=== PATIENT | female | born 1960 | race African-American/Black ===

== ENCOUNTER 2020-11-08 11:26 | Emergency (ER) | payer OTHER, SELFPAY ==
[2020-11-08 13:41] VITALS: BP 152/67; PULSE 95; RESP 18; TEMP 36.8; O2SAT 100
--- NOTE | 2020-11-08 13:46 | ECG_ITS ---
Measurements Intervals [place] Rate: 93 P: 49 MT: 169 QRS: 52 QRSD: 87 T: -18 QT: 347 QTc: 433 Interpretive Statements SINUS RHYTHM FREQUENT VENTRICULAR PREMATURE COMPLEXES NONSPECIFIC ST & T-WAVE ABNORMALITY- ANTEROLAT/INF LEADS BASELINE ARTIFACT- I, II, III, AVR, AVL, AVF, V5 ABNORMAL ECG Electronically Signed On 11-08-2020 13:56:07 CDT by Taiwo Serrato D.O.
== END 2020-11-08 13:41 | disposition left against medical advice (07) ==
PROVIDERS: Emergency Provider Emergency Medicine; PCP Family Medicine
DX: R03.0 Elevated blood-pressure reading, without diagnosis of hypertension (principal)
CPT/HCPCS: 93005; 99199

== ENCOUNTER 2021-01-19 09:23 | Outpatient (CLI) | payer OTHER, SELFPAY ==
--- NOTE | ~2021-01-19 | MM_ITS ---
EXAMINATION: MM screening ryan BI w argelia HISTORY: Screening TECHNIQUE: Craniocaudal and mediolateral oblique 3-D tomosynthesis images were obtained and synthetic 2-D images were generated. CAD analysis was submitted and interpreted. COMPARISON: No prior mammogram is available for comparison at this institution. BREAST PARENCHYMAL COMPOSITION: The breasts are heterogenously dense, which may obscure small masses. FINDINGS: There are bilateral breast asymmetries centrally which are obscured by dense fibroglandular tissue. There are no suspicious calcifications. IMPRESSION: 1. Bilateral breast asymmetries. 2. Additional mammographic views and possible breast ultrasound are recommended. BI-RADS Category 0: Incomplete: Needs additional imaging evaluation. Reviewed, dictated and finalized at location A. LER MANAGER IMPRESSION: 1. Bilateral breast asymmetries. 2. Additional mammographic views and possible breast ultrasound are recommended . BI-RADS Category 0: Incomplete: Needs additional imaging evaluation.
== END 2021-01-19 09:24 | disposition home or self-care (01) ==
PROVIDERS: PCP Family Medicine
DX: Z12.31 Encounter for screening mammogram for malignant neoplasm of breast (principal); R92.8 Other abnormal and inconclusive findings on diagnostic imaging of breast
CPT/HCPCS: 77063; 77067

== ENCOUNTER 2021-02-23 11:42 | Outpatient (CLI) | payer OTHER, SELFPAY ==
--- NOTE | ~2021-02-23 | MMUS_ITS ---
EXAMINATION: MM diagnostic ryan BI w argelia, US breast BI complete HISTORY: Follow-up breast asymmetries TECHNIQUE: Additional 3-D tomosynthesis images of the breasts were performed and synthetic 2-D images were generated. CAD analysis was submitted and interpreted. High resolution complete bilateral breas t ultrasound was performed. COMPARISON: 01/19/2021 BREAST PARENCHYMAL COMPOSITION: The breasts are heterogenously dense, which may obscure small masses FINDINGS: MAMMOGRAPHIC FINDINGS: There are no suspicious masses, calcifications or architectural distortion in either breast to sugges t malignancy. ULTRASOUND: Complete bilateral US of all 4 quadrants of the breasts and retroareolar region was reviewed. Normal heterogeneous echotexture throughout both breasts without discrete mass. IMPRESSION: 1. No evidence for malignancy in either breast. 2. Routine yearly screening mammogram and regular clinical breast examination are recommended. BI-RADS Category 1: Negative Reviewed, dictated and finalized at location A. ACTIVITIES COACH IMPRESSION: 1. No evidence for malignancy in either breast. 2. Routine yearly screening mammogram and regular clinical breast examination a re recommended. BI-RADS Category 1: Negative
== END 2021-02-23 11:43 | disposition home or self-care (01) ==
LOC: ANHIMG 11:45
PROVIDERS: PCP Family Medicine
DX: R92.8 Other abnormal and inconclusive findings on diagnostic imaging of breast (principal)
CPT/HCPCS: 76641; 77062; 77066; G0279

== ENCOUNTER 2021-10-13 13:03 | Outpatient (CLI) | payer OTHER, SELFPAY ==
[2021-10-15 13:02] LABS: PCP NEGATIVE ng/mL (<25)
[2021-10-27 13:41] LABS: Amphetamines NEGATIVE; Barbiturates NEGATIVE; Marijuana Metabolites NEGATIVE
[2021-10-27 13:42] LABS: Benzodiazepines NEGATIVE; Cocaine Metabolites NEGATIVE
== END 2021-10-13 13:04 | disposition home or self-care (01) ==
PROVIDERS: PCP Family Medicine; Visit Provider Family Medicine
DX: Z79.899 Other long term (current) drug therapy (principal)
CPT/HCPCS: 80307

== ENCOUNTER 2022-05-10 09:05 | Outpatient (CLI) | payer OTHER, SELFPAY ==
--- NOTE | 2022-05-10 11:48 | WPDPFTINT ---
PFT Procedure Performed PFT Procedure Performed Spirometry with Pre/Post Bronchodilator Plethysmography (Lung Vol) Diffusing Cap (DLCO) PFT Interpretation DOS: 05/10/2022 REQUESTING: Kylie Newton APRN REASON FOR TESTING: Dyspnea on exertion PULMONARY FUNCTION TESTS The results are not reproducible. Spirometry: FEV1 pre bronchodilators 1.94 L, 102% predicted, normal. Pre bronchodilator FVC is 2.19 L, 91%, normal. The FEV1/ FVC ratio was 89% normal. No airflow obstruction. After bronchodilator there is a 6% drop in FEV1 and 8% drop in the FVC. Lung volumes: Total lung capacity is 4.16 L, 100% predicted, normal. Residual volume is 1.94 L, 107% predicted, normal. RV / TLC 47%, within the normal range. Airway resistance is 3.17, 164%, greater than the normal. Diffusion: DLCO is 14.9, 73%, normal. DLCO/ VA is 5.11, 114%, normal. Flow volume loop: The flow volume loop is not reproducible. IMPRESSION: This study shows normal spirometry without response to bronchodilator, normal lung volumes and normal diffusion. Although the results were not reproducible as the patient could not exhale for at least 6 seconds, the normal results are reassuring. Clinical correlation is recommended. Dunia So MD
--- NOTE | 2022-05-10 12:04 | WPDSIXMINUTE ---
Six Minute Walk Procedure Procedure Performed Pulmonary Stress Test (6 min walk) Six Minute Walk Six Minute Walk: DOS: 05/10/2022 REQUESTING: Kylie Newton APRN REASON: dyspnea on exertion SIX MINUTE WALK This test was conducted according to ATS standards. The patient was breathing room air during testing. The baseline saturation was 96% and the pulse was 99. The patient walked without stopping, completed 518 m, 1700 ft. The lowest saturation was 92%. Highest pulse or was 127 beats per minute. At the end of recovery saturation was normal 97% pulse was 114. IMPRESSION: This is a normal walk study. The patient does not require supplemental oxygen with exertion. Distance walked is normal.
--- NOTE | 2022-05-14 11:45 | WPDSIXMINUTE ---
Six Minute Walk Procedure Procedure Performed Pulmonary Stress Test (6 min walk) Six Minute Walk Six Minute Walk: This is a 6 minute walk test. The test was performed and interpreted in accordance with the 2014 ERS/ATS task force guidelines. Findings: The patient's resting room air oxygen saturation measured by pulse oximetry was 96% and heart rate was 99 bpm. Patient ambulated for 518 meters and oxygen saturation remained 93 to 97%. Heart rate at the end of the study was 120 bpm. The patient did not qualify for supplemental oxygen at rest or with ambulation. There are no prior studies for comparison.
--- NOTE | 2022-05-14 11:46 | WPDPFTINT ---
PFT Procedure Performed PFT Procedure Performed Spirometry with Pre/Post Bronchodilator Plethysmography (Lung Vol) Diffusing Cap (DLCO) Flow Vol Loop PFT Interpretation This is a pulmonary function test with pre and post-bronchodilator spirometry, plethysmography and diffusing capacity. The test was performed and results interpreted in accordance with the 2019 and 2005 ATS/ERS Task Force guidelines respectively using the Global Lung Function Initiative-2012 reference equations. Patient demonstrated good effort and cooperation. Reproducibility criteria were met. The quality of the pre bronchodilator spirometry maneuver was Grade B and post bronchodilator spirometry maneuver was Grade A. Findings: Spirometry: The contour the inspiratory and expiratory flow tracing are normal. The pre bronchodilator FVC is 2.19 L, 91% predicted. The pre bronchodilator FEV1 is 1.94 L, 102% predicted. The pre bronchodilator FEV1: FVC ratio is 89%. The post bronchodilator FVC is 2.00 L, representing an 8% decrease. The post bronchodilator FEV1 is 1.83 L, representing a 6% decrease. The post bronchodilator FEV1: FVC ratio is 91%. Plethysmography: The total lung capacity is 4.16 L, 100% predicted. The functional residual capacity is 2.43 L, 97% predicted. The residual volume is 1.94 L, 107% predicted. Diffusing capacity: The diffusing capacity unadjusted for hemoglobin and carboxyhemoglobin is 14.9, 73% predicted. The diffusing capacity adjusted for alveolar volume is 5.11, 114% predicted. Impression: The spirometry is normal without evidence of an obstructive abnormality. There is no significant improvement after inhaling a single dose of albuterol. The lung volumes are normal. The diffusing capacity is normal. There are no prior studies for comparison
== END 2022-05-10 09:06 | disposition home or self-care (01) ==
PROVIDERS: PCP Family Medicine; Visit Provider Nurse Practitioner Gerontology
DX: R06.09 Other forms of dyspnea (principal)
CPT/HCPCS: 94060; 94618; 94726; 94729

== ENCOUNTER 2023-02-27 15:03 | Outpatient (CLI) | payer MEDICARE, MEDICAID, SELFPAY ==
--- NOTE | ~2023-02-27 | MM_ITS ---
EXAMINATION: MM screening ryan BI w argelia HISTORY: Screening TECHNIQUE: Craniocaudal and mediolateral oblique 3-D tomosynthesis images were obtained and synthetic 2-D images were generated. CAD analysis was submitted and interpreted. COMPARISON: . Comparison to multiple prior studies sequentially, with oldest reviewed study dated . BREAST PARENCHYMAL COMPOSITION: The breasts are heterogeneously dense, which may obscure small masses FINDINGS: There are nodular asymmetries centrally in both breasts which are more prominent than on pr ior study. There are no suspicious calcifications or architectural distortion. IMPRESSION: 1. Increased prominence of nodular asymmetries bilaterally. 2. Additional mammographic views and possible breast ultrasound are recommended. BI-RADS Category 0: Incomplete: Needs additional imaging evaluation. Reviewed, dictated and finalized at location A. ING HOME AIDE IMPRESSION: 1. Increased prominence of nodular asymmetries bilaterally. 2. Additional mammographic views and possible breast ultrasound are recommended . BI-RADS Category 0: Incomplete: Needs additional imaging evaluation.
== END 2023-02-27 15:04 | disposition home or self-care (01) ==
PROVIDERS: PCP Family Medicine; Visit Provider Obstetrics & Gynecology
DX: Z12.31 Encounter for screening mammogram for malignant neoplasm of breast (principal); R92.8 Other abnormal and inconclusive findings on diagnostic imaging of breast
CPT/HCPCS: 77063; 77067

== ENCOUNTER 2023-04-11 12:24 | Outpatient (CLI) | payer MEDICARE, MEDICAID, SELFPAY ==
--- NOTE | ~2023-04-11 | MMUS_ITS ---
EXAMINATION: MM diagnostic ryan BI w argelia, US breast BI complete HISTORY: Follow-up bilateral breast asymmetries TECHNIQUE: Additional 3-D tomosynthesis images of the breasts were performed and synthetic 2-D images were generated. CAD analysis was submitted and interpreted. High resolution bilateral complete breas t ultrasound was performed. COMPARISON: Comparison to multiple prior studies sequentially, with oldest reviewed study dated 12/13. BREAST PARENCHYMAL COMPOSITION: Dense: The breasts are extremely dense, which lowers the sensitivity of mammography. FINDINGS: MAMMOGRAPHIC FINDINGS: The asymmetries are not apparent with spot compression and mediolateral views, compatible with superi mposed fibroglandular tissue. No suspicious masses, calcifications or architectural distortion in eit her breast to suggest malignancy. ULTRASOUND: Complete bilateral US of all 4 quadrants of the breasts and retroareolar region was reviewed. Normal heterogeneous echotexture without focal solid or cystic mass. IMPRESSION: 1. No evidence for malignancy in either breast. 2. Routine yearly screening mammogram and regular clinical breast examination are recommended. BI-RADS Category 1: Negative Reviewed, dictated and finalized at location A. OR TECHNICAL BUSINESS ANALYST IMPRESSION: 1. No evidence for malignancy in either breast. 2. Routine yearly screening mammogram and regular clinical breast examination a re recommended. BI-RADS Category 1: Negative
== END 2023-04-11 12:25 | disposition home or self-care (01) ==
LOC: ANHIMG 12:26
PROVIDERS: PCP Family Medicine; Visit Provider Obstetrics & Gynecology
DX: N64.89 Other specified disorders of breast (principal)
CPT/HCPCS: 76641; 77062; 77066; G0279

== ENCOUNTER 2023-04-17 16:35 | Emergency (ER) | payer MEDICARE, MEDICAID, SELFPAY ==
--- NOTE | ~2023-04-17 | XR_ITS ---
EXAM: XR wrist LT min 3V DATE: 04/17/2023 17:55 HISTORY: fall . COMPARISON: None available. FINDINGS: Normal mineralization. No fracture. 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 No lytic or blastic lesion. No erosion or periosteal change. S oft tissues within normal limits. IMPRESSION: No acute osseous finding in the left wrist. Reviewed, dictated and finalized at location K. ER COSMETOLOGIST
--- NOTE | ~2023-04-17 | XR_ITS ---
EXAM: XR wrist RT min 3V DATE: 04/17/2023 17:55 HISTORY: fall. previous surgeries to right wrist . COMPARISON: 11/13/2018. FINDINGS: Normal mineralization. Status post scaphoid resection. Soft tissue anchor in the distal ul na. No lytic or blastic lesion. Severe arthritic changes with extensive subchondral cyst formation at the DRUJ, radiocarpal joint, and between multiple carpal bones. Likely multifocal carpal fusions. No erosion or periosteal change. Soft tissues within normal limits. IMPRESSION: No acute osseous finding in the right wrist. Reviewed, dictated and finalized at location K. LLERY MAINTENANCE SUPERVISOR
[2023-04-17 16:38] VITALS: BP 128/87; PULSE 90; RESP 16; TEMP 35.7; O2SAT 100
--- NOTE | 2023-04-17 17:42 | ED.UPPEXIN ---
HPI - Extremity Injury (Upper) General Chief Complaint: Extremity Injury, Upper Stated Complaint: bilateral wrist pain Time Seen by Provider: 04/17/23 17:40 Focused HPI: Ms. Haynes is a 63-year-old female patient presenting to the ER today with complaints of bilateral wrist pain. She reports this evening she went to a local establishment to scrap picker a food order and did not see a chair holding the door open and she tripped over the chair. She extended her hands out to keep her face from hitting the floor and now she is complaining bilateral wrist pain. General: Well-developed, well nourished, in no apparent distress Head: Normocephalic, atraumatic. Cardio: Regular rate and rhythm, s1 and s2 normal, no murmur appreciated. Resp: Clear to auscultation bilaterally, no rhonchi, rales, wheezing or rubs. Musculoskeletal: No deformity, bruising and swelling noted to bilateral radial wrist, tender to palpation of entire wrist joint, pain with flexion, extension of the wrist and ulnar and radial deviation, grossly normal range of motion, bilateral radial pulses strong, , no cyanosis, normal gait and station Patient screened in triage and initial orders placed. Bilateral wrist x-rays ordered. Additional care and disposition to be based upon diagnostic testing and treatment. Source: patient Mode of arrival: ambulatory Limitations: no limitations Related Data Home Medications Medication Instructions Recorded Confirmed acyclovir 400 mg tablet 400 mg PO DAILY 06/06/22 06/06/22 amlodipine 5 mg tablet 5 mg PO DAILY 06/06/22 06/06/22 atorvastatin 40 mg tablet 40 mg PO DAILY 06/06/22 06/06/22 azelastine 137 mcg (0.1 %) nasal 137 mcg intranasal Q12H 06/06/22 06/06/22 spray aerosol baclofen 10 mg tablet 10 mg PO DAILY 06/06/22 06/06/22 hydrochlorothiazide 12.5 mg capsule 12.5 mg PO DAILY 06/06/22 06/06/22 hydrocodone 10 mg-acetaminophen 15 ml PO Q12H PRN 06/06/22 06/06/22 325 mg/15 mL (15 mL) oral solution levothyroxine 137 mcg capsule 137 mcg PO DAILY 06/06/22 06/06/22 linaclotide 290 mcg capsule 290 mcg PO DAILY 04/25/23 04/25/23 (Linzess) meloxicam 15 mg tablet 15 mg PO DAILY 06/06/22 06/06/22 montelukast 10 mg tablet 10 mg PO DAILY 06/06/22 06/06/22 omeprazole 40 mg capsule,delayed 40 mg PO DAILY 06/06/22 06/06/22 release phentermine 37.5 mg disintegrating mg PO 06/06/22 06/06/22 tablet potassium chloride 10 mEq 10 meq PO DAILY 06/06/22 06/06/22 capsule,extended release Allergies Allergy/AdvReac Type Severity Reaction Status Date / Time codeine Allergy Mild Hives / Verified 06/06/22 10:39 Red Face aspirin Allergy Unknown Rash Verified 06/06/22 10:39 Review of Systems Review of Systems: Pertinent positives per HPI. Patient denies any fever, chills, rash, headache, visual changes, dizziness, cough, runny nose, sore throat, shortness of breath, chest pain, palpitations, nausea, vomiting, diarrhea, constipation, abdominal pain, or any urinary issues. [facility] Past Medical History Medical History Graves disease High cholesterol Screening mammogram, encounter for Surgical History Surgical History History of knee replacement (03/14/21) left knee replacement History of orthopedic surgery (05/11/22) left shoulder surgery Hx of LASIK Family History Family History Father Cerebrovascular accident Mother Alzheimer disease Other Breast cancer maternal aunt Sibling Cerebrovascular accident brother Social History Social History Smoking status: Never smoker Tobacco type: cigarettes Smoking end date: 05/13/20 Alcohol intake: former Substance use: never Substance use type: does not use Living arrangements: other Additional living arrange
[2023-04-17 18:37] VITALS: BP 124/80; PULSE 80; RESP 16; TEMP 36.7; O2SAT 100
== END 2023-04-17 18:39 | disposition home or self-care (01) ==
LOC: ANHED 18:31
PROVIDERS: Emergency Provider Nurse Practitioner Family; PCP Family Medicine
DX: S63.502A Unspecified sprain of left wrist, initial encounter (principal); S63.501A Unspecified sprain of right wrist, initial encounter; E05.00 Thyrotoxicosis with diffuse goiter without thyrotoxic crisis or storm; E78.00 Pure hypercholesterolemia, unspecified; Z96.652 Presence of left artificial knee joint; Z87.891 Personal history of nicotine dependence; W18.09XA Striking against other object with subsequent fall, initial encounter
CPT/HCPCS: 73110; 99284

== ENCOUNTER 2024-04-04 13:30 | Outpatient (RCR) | payer MEDICARE, MEDICAID, SELFPAY ==
--- NOTE | 2024-01-15 15:28 | PCPTNOTE ---
pt did not show for PT evaluation appt.
--- NOTE | 2024-01-28 16:55 | OPREHPOC ---
Outpatient Therapy Plan of Care This is a Multidisciplinary Plan of Care that may contain components documented by all disciplines (PT, OT, and ST.) PT Problem 1 PT Problem #1 Knowledge Deficit PT Goal 1 Goal / Goal Update [place] with HEP Target Visit 4 PT Goal 2 Goal / Goal Update Patient will report pain no greater than 3/10 consistently for 2 weeks Target Visit 8 PT Problem 2 PT Problem #2 Impaired Functional Mobility PT Goal 1 Goal / Goal Update Oswestry score improvement of 20% or greater Target Visit 8 PT Problem 3 PT Problem #3 Impaired Strength PT Goal 1 Goal / Goal Update 1. Improve tommy hip flexion strength to 4+/5 without pain to improve foot progression and clearance 2. Improve tommy hip abduction strength to 4+/5 to improve lateral stability with gait and ADLs Target Visit 8 PT Goal 2 Goal / Goal Update Improve lower abdominal strength to 4/5 to improve pelvic stability with hip disassociation Target Visit 8
--- NOTE | 2024-01-28 16:55 | PTOPEVAL1 ---
Assessment and note entered by Vincent Kennedy, PT Evaluation Information Assessment Status Evaluation ICD-10 Condition Codes (PT) Pain in low back M54.50 Onset 5+ years Subjective Information Reports that she has had a few falls this year involving missing a step and sliding. Her last fall was around August of this year. She has been having trouble sleeping at night and usually has an alcoholic drink to help her sleep. She recently had carpal tunnel surgery and dealt with an infection in her wrists. She had a total knee replacement in 2021 and has had some issues since then. Pain is mostly in her back but at times radiates down into her glutes. Primary pain is on the right. Reported Pain Level Pain Score 6: Self Report Assessment PT Clinical Summary Patient presents with signs and symptoms consistent with lumbar stenosis and poor postural positioning of pelvis from lower abdominal weakness. Patient will benefit form skilled therapy to address these deficits for full functional improvement and decreased low back pain with ADL performance. Plan of Care Interventions Electrical Stimulation,Hot Pack/Cold Pack,Manual Therapy,Neuro Re-education,Therapeutic Activities, Therapeutic Exercise PT Services Indicated Yes Treatment Frequency and 1-2x/week for 8 visits Duration These treatments will address the objective and functional deficits as defined above. The patient will be advanced safely and appropriately in order for the patient to progress towards his/her prior level of function. Additional exercises will be introduced and as well as a comprehensive home exercise program upon discharge, if needed, ?to ensure carryover of functional gains achieved in the clinic. This treatment plan has been reviewed and agreement upon by the patient.
--- NOTE | 2024-02-27 11:37 | PCPTNOTE ---
Canceled/sick. AKS
--- NOTE | 2024-03-06 11:46 | PCPTNOTE ---
Canceled sick. AKS
--- NOTE | 2024-03-11 12:56 | PCPTNOTE ---
Called pt to remind her of her missed appt. She said she texted the cx. She palns on attending the 03-13 12:30 appt.
--- NOTE | 2024-04-03 13:00 | PCPTNOTE ---
Pt. called and cancelled her PT appointment for today. Pt reported she can't walk today. Pt. rescheduled for Sunday
--- NOTE | 2024-04-15 11:53 | PCPTNOTE ---
called and canceled today's reeval appt.
== END 2024-04-27 23:59 | disposition home or self-care (01) ==
LOC: ANHPT 13:30
PROVIDERS: PCP Family Medicine; Visit Provider Family Medicine
DX: M54.50 Low back pain, unspecified (principal)
CPT/HCPCS: 97110; 97140; 97161

== ENCOUNTER 2024-05-20 12:30 | Outpatient (RCR) | payer MEDICARE, MEDICAID, SELFPAY ==
--- NOTE | 2024-05-12 08:50 | PCPTNOTE ---
This treatment is being continued from visit number [id number] Please see documentation on both accounts to view progress. Completed interventions, outcomes, and problems have been marked as Inactive to facilitate the copying of the Care plan routine for recurring accounts.
--- NOTE | 2024-05-20 13:30 | PTOPDC ---
Assessment and note entered by Beulah Goyal, PT Assessment Status Discharge ICD-10 Condition Codes (PT) Pain in low back M54.50 Onset 5+ years Subjective Information am not doing well; have more pain, trying to move into a new place, do not have my caregiver anymore--trying to get a new one; saw dr last week for refills on meds, nothing new there; therapy is not helping-- exercises and things they gave me do not help, only thing that helps in the past was a massage; have tendonitis in both wrists after the surgery and wearing the wrist splints; have had 2 falls since last here: fell when her puppy was chased by another dog--hurt her back more and went to sit on a chair and the wheels do not lock, fell onto her butt; have not been to a back specialist or dr about my back, other than my general dr. do not have time for therapy now--getting ready to move and get the new house ready; wrists hurt and cannot do much around the house; need to get stronger to be able to do more, but pain so bad cannot do anything; Reported Pain Level Pain Score Self Report Additional Pain Score Comments pain range in the past week 4-10/10; lumbar pain R > L; decrease pain: lie flat on back only thing that helps; muscle cream helps little increase pain: standing 2-3 minutes; shower and wash self; also have bilateral wrist pain-- wearing splints due to tendonitis of wrists Assessment PT Clinical Summary Staci has had 5 PT sessions, from January 27 to today. She has called/canceled 4 and not shown for 2 appointments. Compared to the initial evaluation: pain from 5-9/ 10 to 4-10/10; self assessment Oswestry rating from 52 to 62% limitation in activity level; reports standing tolerance of 2-3 minutes, and with standing posture assessment and trunk flexibility- stood only ~ 30 seconds, then had to sit down; 2 minute walking test distance of 360', with reports of same pain rating after walking; pain in increased with supine R hip IR, standing trunk flexion and supine bridge; education for HEP and pain management techniques. The goals were partially met. Staci reports that therapy does not really help been too busy with trying to move and get her new house ready--wants to stop therapy now. Discharge PT services. She is to continue with her HEP. Return dr bundy is in July. If additional therapy is needed, she will obtain a new script. Plan of Care PT Services Indicated No
== END 2024-08-05 10:20 | disposition home or self-care (01) ==
LOC: ANHPT 12:30
PROVIDERS: PCP Family Medicine; Visit Provider Family Medicine
DX: M54.50 Low back pain, unspecified (principal)
CPT/HCPCS: 97110; 97140

== ENCOUNTER 2024-12-13 18:21 | Emergency (ER) | payer MEDICARE, MEDICAID, SELFPAY ==
--- OUTSIDE RECORDS SUMMARY | 2003-11-10 05:30 | XMS_ITS | Continuity of Care Document ---
Author Organization [facility] Address [id number] [place] [address] [place] [address] Phone Care Team Providers Care Retail Sales Representative Name Role Phone Sukhi Soto DO Unavailable Unavailable Advance Directives Directive Yes / No Effective Date File Name No Information Encounters Encounter Description Practice Location Reason(s) For Visit Diagnoses Date Provider Providers Copied on Encounter [facility], [address], [place], [place], [id number], [place] tel:[phone] [address] [facility] [place] No Information Charles Hernandez. [address] [facility], [place], [address], [place]. tel:[phone] Family History Family Member Type Diagnosis Age At Onset No Information Payers Payer name Insurance type Covered constitution party ID Authoriza tion(s) No Information Social History Type Description Quantity Date Captured Comments Sex Female Smoking Status No Information Chief Complaint And Reason For Visit No Information Reason For Referral Reason For Referral No Information History Of Present Illness Encounter Date Complaint History Of Prese nt Illness No Information Functional Status Date Functional Assessmen t No Information Instructions Date Instruction Additional Infor mation No Information Assessments Type Assessment Date No Information Patient Care Teams Name Effective Dates (start - stop) Status Members No Information
--- OUTSIDE RECORDS SUMMARY | 2003-11-10 05:30 | XMS_ITS | Continuity of Care Document ---
Author Organization [facility] Address [id number] [place] [address] [place] [address] Phone Care Team Providers Care Special Programs Director Name Role Phone Sukhi Soto DO Unavailable Unavailable Advance Directives Directive Yes / No Effective Date File Name No Information Encounters Encounter Description Practice Location Reason(s) For Visit Diagnoses Date Provider Providers Copied on Encounter [facility], [address], [place], [place], [id number], [place] tel:[phone] [facility] [employer] No Information Charles Hernandez. [address] [facility], [place], [address], [place]. tel:[phone] Family History Family Member Type Diagnosis Age At Onset No Information Payers Payer name Insurance type Covered republican ID Authoriza tion(s) No Information Social History [...]
--- NOTE | ~2024-12-13 | XR_ITS ---
EXAMINATION: XR wrist LT min 3V, 12/13/2024 19:45 CDT HISTORY: fall COMPARISON: No comparisons available. Findings: No acute fracture or malalignment. Moderate to severe degenerative changes of the carpal joints with chondrocalcinosis and areas of subchondral cystic change, there is widening of the scapholunate space, underlying ligamentous injury is not excluded. Soft tissues unremarkable. Impression: No acute fracture or malalignment. Reviewed, dictated and finalized at location P. Impression: No acute fracture or malalignment.
--- NOTE | ~2024-12-13 | XR_ITS ---
EXAMINATION: XR forearm LT 2V, 12/13/2024 19:45 CDT HISTORY: fall COMPARISON: No comparisons available. Findings: No acute fracture or malalignment. Moderate degenerative changes of the visualized wrist with areas of cystic change. Soft tissues unremarkable. Impression: No acute fracture or malalignment. Reviewed, dictated and finalized at location P. Impression: No acute fracture or malalignment.
--- NOTE | ~2024-12-13 | XR_ITS ---
EXAMINATION: XR tibia fibula RT 2V, 12/13/2024 19:45 CDT HISTORY: fall COMPARISON: No comparisons available. Findings: No acute fracture or malalignment. Medial knee arthroplasty appears intact Soft tissues unremarkable. Impression: No acute fracture or malalignment. Reviewed, dictated and finalized at location P. Impression: No acute fracture or malalignment.
--- OUTSIDE RECORDS SUMMARY | 2024-12-13 18:23 | XMS_ITS | Clinical Summary ---
Author Organization [facility] Address [address] [place] [address] Care Team Providers Care Transmission Systems Operator Name Role Phone Marcelino Diaz MD Primary Care Provider Allergies Active Allergy Reactions Criticality Noted Date Comments Codeine Itching 12/20/2020 Methocarbamol Hallucinations 12/20/2020 Medications levothyroxine 125 MCG tablet Take 1 tablet by mouth daily. Active HYDROcodone-chelsea taminophen 10-325 MG tablet Take 1 tablet by mouth 3 (three) times daily as needed. Active baclofen 10 MG tablet 11/21/2020 Active acyclovir 400 MG tablet Take 1 tablet by mouth 2 (two) times daily. Active meloxicam 15 MG tablet Take 0.5 tablets by mouth 2 (two) times daily. 07/29/2014 Active latanoprost 0.005 % ophthalmic solution 11/03/2014 Active amLODIPine 5 MG tablet Take 1 tablet by mouth daily. Active diphenhydrAMINE (BENADRYL ALLERGY) 25 MG tablet Active fluticasone propionate 50 MCG/ACT nasal spray 10/08/2014 Active ketorolac 0.5 % ophthalmic solution 08/20/2014 Active hydroCHLOROthia zide 12.5 MG tablet Take 12.5 mg by mouth every morning. Active atorvastatin 40 MG tablet Take 40 mg by mouth nightly at bedtime. Active potassium chloride CR 10 MEQ tablet Take 10 mEq by mouth 2 (two) times daily. Active omeprazole 40 MG capsule Take 40 mg by mouth daily. Active Phentermine HCl (ADIPEX-P) 37.5 MG Cap Active Family History Medical History Relation Comments Diabetes Father Dementia Mother Hypertension Mother Relation Status Comments Father Mother Alive Social History Tobacco Use Types Packs/Day Years Used Date Smoking Tobacco: Former Cigarettes Q uit: 2018 Smokeless Tobacco: Never Alcohol Use Standard Drinks/Week Comments Yes 3.3 (1 standard drink = 0.6 oz p ure alcohol) was daily, now ocassional Comments Unknown Sex and Gender Information Value Date Recorded Sex Assigned at Not on file Legal Sex Female 6:56 PM CDT Gender Identity Not on file Sexual Orientation Not on file Occupation Industry Job Start Date Job End Date disabled Not on file Not on file Not on file Last Filed Vital Signs Vital Sign Reading Time Taken Comments Blood Pressure 176/115 12/20/2020 5:10 PM CIVIL ENGINEERING SPECIALIST Pulse 94 12/20/2020 5:10 PM CIVIL ENGINEERING SPECIALIST Temperature 37.1 C (98.7 F) 12/20/2020 4:56 PM CIVIL ENGINEERING SPECIALIST Respiratory Rate 19 12/20/2020 5:10 PM CIVIL ENGINEERING SPECIALIST Oxygen Saturation 98% 12/20/2020 5:10 PM CIVIL ENGINEERING SPECIALIST Inhaled Oxygen Concentration - - Weight 83.9 kg (185 lb) 12/20/2020 2:26 PM CIVIL ENGINEERING SPECIALIST Height 157.5 cm (5' 2) 12/20/2020 2:26 PM CIVIL ENGINEERING SPECIALIST Body Mass Index 33.84 12/20/2020 2:26 PM CIVIL ENGINEERING SPECIALIST Plan of Treatment Upcoming Encounters Date Type Department Care Team (Late st Contact Info) Description 05/19/2025 10:00 AM CDT Office Visit [facility] [address] [place] [address] Fili Jarrell DO [address] [place] [address] Health Maintenance Due Date Last Done Comments Colorectal Cancer Screening Colonoscopy (10 Years) 1958 Hepatitis C 01/19/1976 DTaP, Tdap and Td Vaccines (1 - Tdap) 1977 Mammogram Screening 1998 Pneumococcal Vaccine: 50+ Years (1 of 1 - PCV) 01/19/2008 Zoster Vaccines (1 of 2) 01/19/2008 Dexa Scan (General) 2023 COVID-19 Vaccine ( season) 2024 05/23/2020, 04/29/2020 Influenza Adult (#1) 2024 11/25/2019, 11/05/2018, 11/21/2017, Additional history exists RSV Immunization or 60+ Years (1 - 1-dose 75+ series) 2033 Hepatitis A Vaccines Aged Out No long er eligible based on patient's age to complete this topic Meningococcal B Vaccine Aged Out No l onger eligible based on patient's age to complete this topic Meningococcal Vaccine Aged Out No lori yaakov eligible based on patient's age to complete this topic RSV Immunizations Under 20 Months Aged Out No longer eligible based on patient's age to complete this topic Medical Devices Implanted Type Area Collar Fuser Device Identifier Shelf Expiration Date Model / Serial / Lot Left Total Knee Insurance [facility] Care Teams Transmission Systems Operator Relationship Specialty Start Date End Date Marcelino Diaz MD PCP - General 07/13/15
--- OUTSIDE RECORDS SUMMARY | 2024-12-13 18:23 | XMS_ITS | Encounter Summary ---
Author Organization [facility] Address [address] [place] [address] Care Team Providers Care Java Tech Lead Name Role Phone Marcelino Diaz Primary Care Provider Prince Cuellar MD Unavailable [phone] Pierce Nelson MD Unavailable [phone] Reason for Visit * Reason Onset Date Comments MEDICATION REFILL 12/12/2024 Encounter Details Date Type Department Care Team (Late st Contact Info) Description 12/12/2024 Refill [facility] [address] [place] [address] Annalisa Corado PA-C [address] [place] [address] MEDICATION REFILL Social History Tobacco Use Types Packs/Day Years Used Date Smoking Tobacco: Former Cigarettes 0.3 42 1 976 - 2017 Smokeless Tobacco: Current Alcohol Use Standard Drinks/Week Comments Yes 10 (1 standard drink = 0.6 oz pu re alcohol) Daily tequila AUDIT-C Answer Date Recorded Q1: How often do you have a drink containing alc ohol? Never 05/11/2022 Q2: How many drinks containi ng alcohol do you have on a typical day when you are drinking? 1 or 2 05/11/2022 Q3: How often do you have six or more drinks on one occasion? Never 05/11/2022 PHQ-2 Answer Date Recorded Patient Health Questionnaire-2 Score 0 10/29/2024 Comments No Sex and Gender Information Value Date Recorded Sex Assigned at Not on file Legal Sex Female 6:00 AM BRAIDER OPERATOR Gender Identity Not on file Sexual Orientation Not on file documented as of this encounter Functional Status * Is person deaf or have serious hearing difficulty? Answer Date of Assessment Author No 11/20/2023 1:05 PM CDT Aaron Wilson RN * Is person blind or have serious difficulty seeing? Answer Date of Assessment Author No 11/20/2023 1:05 PM CDT Araon Wilson RN * Does person have serious difficulty walking/climbing stairs? Answer Date of Assessment Author No 11/20/2023 1:05 PM CDT Aaron Wilson RN * Does person have difficulty dressing/bathing? Answer Date of Assessment Author No 11/20/2023 1:05 PM CDT Aaron Wilson RN * Does person have difficulty doing errands alone? Answer Date of Assessment Author No 11/20/2023 1:05 PM CDT Aaron Wilson RN documented as of this encounter Mental Status * Does person have difficulty concentrating/remembering/making decisions? Answer Entry Date Author No 11/20/2023 1:05 PM CDT Aaron Wilson RN documented in this encounter Miscellaneous Notes * Telephone Encounter - Omayra Dodge - 12/12/2024 1:02 PM CDT Refill request denied because Duplicate documented in this encounter Plan of Treatment Upcoming Encounters Date Type Department Care Team (Late st Contact Info) Description 12/30/2024 1:30 PM BRAIDER OPERATOR Office Visit [facility] - Ophthalmology [address] [place] [phone] Aamir Salguero MD [address] [place] [phone] 06/11/2025 11:00 AM CDT Office Visit [facility] [address] [place] [address] [place] [phone] 11/04/2025 10:00 AM CDT Office Visit [facility] - Orthopedic Surgery [address] [place] [address] Ralph Walker MD [address] [facility] [address] [place] [address] documented as of this encounter Goals Goal Patient Goal Type Associated Problems Recent Progress Patient-Stated? Author Mobility General Improving( 11:00 AM CDT) No Ela Smalls, RN Note: Expected end date: 02/12/2020 The goal is to maintain or improve your mobility at the optimum level for you. Interventions: Medication Management General No Idania Duran, RN Note: Expected end date: Ongoing Interventions: Take all medications as prescribed Let your doctor know right away about any changes in your medications Make sure to request a refill of your medication at least one week prior to your last dose documented as of this encounter Visit Diagnoses Not on filedocumented in this encounter Care Teams Java Tech Lead Relationship Specialty Start Date End Date Marcelino Diaz [address] [place] [phone] PCP - General 03/08/18 Prince Cuellar MD [address] [facility] [address] [place] [address] Physician Endocrinology 07/11/18 Pierce Nelson MD [address] [facility] [address] [place] [address] Otolaryngology 07/11/18 documented as of this encounter
--- OUTSIDE RECORDS SUMMARY | 2024-12-13 18:23 | XMS_ITS | Clinical Summary ---
Author Organization [facility] [place] Address [address] [place] [address] Care Team Providers [employer] Driver Name Role Phone Marcelino Diaz Primary Care Provider [phone] Prince Cuellar MD Unavailable [phone] Pierce Nelson MD Unavailable [phone] Source Comments [facility],non-owned Affiliates and Associated Physician Practices is amultiple site organization consisting of ambulatory clinics and hospital sitesin [place], [place], [place] and [place]. This disclosure is being madepursuant to the Care Everywhere program and may not contain all information available regarding this patient. Last updated 17.[facility] Allergies Active Allergy Reactions Criticality Noted Date Comments Aspirin Nausea and/or Vomiting Medium 12/29/2019 Codeine Itching Medium 05/30/2018 Generalized itching. Duloxetine Psychiatric Medium 05/30/2018 Hallucinations Hydrocodone Itching Medium 03/14/2021 Can tolerate with benadryl Hydrocodone-Guaifenesin Itching Low 09/01/2014 Escitalopram Psychiatric Medium 06/30/2019 Hallucinations Methocarbamol Psychiatric Medium 12/20/2020 Nsaids GI Discomfort Medium 11/15/2023 Acetaminophen Swelling Low 12/29/2019 Swelling to the face. Medications * Be aware that medications may not be up to date on this document. Alwaysverify current medications with the patient. acyclovir (ZOVIRAX) 400 MG tablet Take 1 (one) tablet by mouth once daily 05/20/19 19 Active fluticasone propionate (FLONASE) 50 MCG/ACT nasal spray Pelican 1 (one) spray into each nostril once daily 01/24/20 19 Active atorvastatin (LIPITOR) 40 MG tablet Take 1 (one) tablet by mouth at bedtime 05/05/19 21 Active phentermine (ADIPEX-P) 37.5 MG tablet Take 1 (one) tablet by mouth daily before breakfast Active Azelastine HCl 137 MCG/SPRAY SOLN Pelican 2 sprays into each nostril 2 times daily 12/27/19 22 Active hydroCHLOROthiaz harsha (Hydrodiuril) 25 MG tablet Take 1 (one) tablet by mouth once daily 04/28/19 23 Active levothyroxine (Synthroid) 137 MCG tabletIndication s:Hypothyroidism Take 1 (one) tablet by mouth daily before breakfast Reasons: Underactive Thyroid 90 tablet 3 05/15/19 24 Active sertraline (Zoloft) 100 MG tablet Take 1 (one) tablet by mouth once daily 09/18/19 24 Active HYDROcodone-acet aminophen (Bandana) 7.5-325 MG tabletIndication s:Carpal tunnel syndrome of left wrist Take 1 (one) tablet by mouth every 6 hours as needed for Pain 28 tablet 11/20/19 24 Active active leptospermum honey (Speakap) GEL gel Apply to affected area once daily 15 mL 1 12/14/19 24 Active celecoxib (CeleBREX) 200 MG capsuleIndicatio ns:History of total left knee replacement Take 1 (one) capsule by mouth once daily 90 capsule 3 10/30/19 25 Active Linzess 290 MCG capsule Take 1 (one) capsule by mouth daily before breakfast 90 capsule 2 12/12/19 25 Active omeprazole (PriLOSEC) 40 MG capsule Take 1 (one) capsule by mouth 2 times daily, before breakfast and supper 60 capsule 6 12/12/19 25 Active LINZESS 290 MCG capsule Take 1,000 (one thousand) capsules by mouth once daily as needed 05/09/19 19 025 Discontin ued(Reord er) pantoprazole EC (Protonix) 40 MG tablet Take 1 (one) tablet by mouth 2 times daily 05/03/19 23 025 Discontin ued(Clini leonidas Decision) methylPREDNISolo ne (Medrol Dosepak) 4 MG tablet Take by mouth as directed 1 Each 09/19/19 24 025 Discontin ued(List Clean-Up) meloxicam (Mobic) 15 MG tablet Take 1 (one) tablet by mouth once daily 30 tablet 3 09/19/19 24 025 Discontin ued(List Clean-Up) cyclobenzaprine (Flexeril) 5 MG tablet 11/07/19 24 025 Discontin ued(List Clean-Up) acetaminophen (Tylenol) 500 MG tablet Take 1 (one) tablet by mouth 3 times daily Maximum allowable Acetaminophen amount = 4 Grams (4000 mg) / 24 hours. 11/20/19 24 Discontin ued(List Clean-Up) docusate sodium (Colace) 100 MG capsule Take 1 (one) capsule by mouth once daily as needed for Constipation 21 capsule 11/20/19 24 025 Discontin ued(List Clean-Up) oxyCODONE, immediate release, (Roxicodone) 5 MG tabletIndication s:Carpal tunnel syndrome of left wrist Take 0.5 (one-half) tablet by mouth every 8 hours as needed for Pain 8 tablet 11/20/19 24 025 Discontin ued(List Clean-Up) Active Problems Problem Noted Date Diagnosed Date Loose left total knee arthroplasty 03/14/2021 Tendinopathy of left rotator cuff 10/22/2020 Carpal tunnel syndrome of left wrist 06/04/2020 Subluxation of extensor carp i ulnaris tendon, right, sequela 02/17/2020 DRUJ (distal radioulnar join t) instability, post-traumatic, right 01/30/2020 Arthritis of wrist, right, degenerative 01/30/20 20 De Quervain's tenosynovitis, right 12/22/2019 TFCC (triangular fibrocartil age complex) injury, right, sequela 12/22/2019 Tendonitis of wrist, right 11/07/2019 Osteoarthrosis 01/29/2019 Irritable bowel syndrome 01/29/2019 Insomnia 01/29/2019 Inguinal hernia 01/29/2019 Hypothyroidism 01/29/2019 Genital herpes simplex 01/29/2019 Gastroesophageal reflux disease 01/29/2019 Essential hypertension 01/29/2019 Eczema 01/29/2019 Allergic rhinitis 01/29/2019 Slac (scapholunate advanced collapse) of wrist, right 11/30/2018 Wrist pain, chronic, right 11/30/2018 Diplopia 07/30/2018 Esotropia 07/30/2018 Hypotropia of left eye 07/30/2018 Thyroid eye disease 07/30/2018 Nasolacrimal duct obstruction, acquired, bilater al 07/11/2018 Bilateral epiphora 07/11/2018 Dry eye syndrome of both eyes 07/11/2018 Graves disease 07/04/2018 Nasal congestion 05/30/2018 Chronic sinusitis 03/28/2018 Facial pressure 03/28/2018 Combined forms of age-related cataract of both e yes 12/18/2017 Glaucoma suspect, both eyes 12/18/2017 Overview (07/10/2023): Repeat gonioscopy shows wide open angle to scleral spur 360 degrees both eyes with 1+ trabecular meshwork pigmentation and occasional iris processes. Marco Antonio Diamond MD 07/10/2023 10:02 AM Before coming to our department in 2018, the patient was followed elsewhere including [facility] with a working diagnosis of open-angle glaucoma. However intraocular pressures have been relatively symmetrical and in a normal range ever since being followed in our department but there is little or no evidence of glaucoma damage on the right and moderate optic atrophy on the left by OCT and visual field presumably from a glaucoma mechanism. 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 Marco Antonio Diamond MD 02/28/2022 3:40 PM As noted in the problem list overview of the left eye, thus far little or no evidence of glaucoma damage Right eye. Marco Antonio Diamond MD 02/28/2022 3:41 PM Class 1 obesity due to exces s calories without serious comorbidity in adult 10/20/2017 Overview (07/04/2018): Last Assessment & Plan: She is already on phentermine, per her PCP. Discussed intermittent fasting, increased water intake, intermittent fasting and exercise. Elevated blood pressure reading 10/20/2017 Overview (07/04/2018): Last Assessment & Plan: Repeated manual BP reading, 120/80. She is currently asymptomatic, will monitor BP at home, and follow up with her PCP Ophthalmic manifestation of Graves disease 10/20 Overview (07/04/2018): Last Assessment & Plan: She has quit smoking some time ago. Currently has lid irritation from artificial lashes. She will have those removed today. Ms. Haynes continues using her eye drops and will follow up with Dr. Kwong in occuloplastics. Postablative hypothyroidism 10/20/2017 Overview (07/04/2018): Last Assessment & Plan: Clinically euthyroid. She had recent thyroid labs obtained by PCP. We left a VM at Dr. Mcallister's office requesting a copy. Chronic neck pain 09/10/2014 Neck pain 09/01/2014 Carpal tunnel syndrome of right wrist Right hand pain Encounters Date Type Department Care Team Description 12/12/2024 Refill [facility]5 Monster Mcdermott , [address] [phone] Annalisa Corado PA-C MEDICATION REFILL 12/11/2024 10:00 AM CDT Office Visit [facility] - GI [address] [place] [phone] Sg Leroy MD Gastroesophageal reflux disease without esophagitis (Primary Dx); Chronic constipation 12/11/2024 Travel 12/10/2024 Travel 11/30/2024 Refill [facility] - Orthopedics [address] [place] [phone] Marc Hickman APRN-CARDBOARD CUTTER Refill Request 11/25/2024 2:50 PM CDT Clinical Support [facility] - Ophthalmology [address] [place] [phone] Gerry Vaz MD Primary open angle glaucoma (POAG) of left eye, moderate stage (Primary Dx) 11/25/2024 2:00 PM CDT Office Visit [facility] - Ophthalmology [address] [place] [phone] Gerry Vaz MD Nuclear sclerotic cataract of both eyes (Primary Dx); Primary open angle glaucoma (POAG) of left eye, moderate stage 11/25/2024 Travel 10/29/2024 10:30 AM CDT Office Visit [facility] - Orthopedic Surgery [address] [place] [phone] Ralph Walker MD History of total left knee replacement (Primary Dx) 10/29/2024 9:53 AM CDT - 10/29/2024 11:59 PM CDT Hospital Encounter [facility] - Orthopedics [address] [place] [address], [address] [place] [phone] Ralph Walker MD Discharge Disposition: Home or Self Care 10/29/2024 Travel 10/03/2024 Orders Only [facility] - Orthopedic Surgery [address] [place] [phone] Ralph Walker MD Left knee pain, unspecified chronicity 10/01/2024 Refill [facility] - Endocrinology [address] [place] [phone] Gerry Sommer MD MEDICATION REFILL 09/18/2024 10:30 AM CDT - 09/18/2024 11:59 PM CDT Hospital Encounter [facility] [address] [place] [phone] Jai Vazquez MD Rudd, Jason, MENG Hand/Upper Extremity Surgery Discharge Disposition: Home or Self Care 09/18/2024 10:00 AM CDT Office Visit [facility] - Orthopedics [address] [place] [phone] Jackie Gentile MD Dhawan, Vikas, MD Arthritis of both wrists (Primary Dx) 09/18/2024 Travel 09/15/2024 Travel from Last 3 Months Immunizations Immunization Administration Dates Next Due INFLUENZA VACCINE, TRIV. (AF LURIA, FLUZONE TRIVALENT; 6MO+) (IIV3) 12/30/2014,12/30/2014,11/12/2014 FLU VACCINE QUAD IIV4 SPLIT 0.25 ML IM 9 INFLUENZA VACCINE 11/24/2020,11/05/2018 INFLUENZA VACCINE, QUADR. (A FLURIA, FLUZONE QUADRIVALENT; 6MO+) (IIV4) 11/25/2019 INFLUENZA VACCINE, QUADR. (F LUZONE; FLULAVAL; FLUARIX; AFLURIA QUADRIVALENT; 6MO+), 0.5 ML (IIV4) 11/21/2017,12/11/2016 Family History Medical History Relation Name Comments CAD (Coronary Artery Disease) Brother CAD (Coronary Artery Disease) Father None Known Maternal Grandfather None Known Maternal Grandmother Arthritis - Rheumatoid Mother CAD (Coronary Artery Disease) Mother Dementia Mother Glaucoma Mother Hypertension Mother None Known Other None Known Paternal Grandfather None Known Paternal Grandmother Diabetes - Type 2 Paternal Uncle Arthritis - Rheumatoid Sister Diabetes - Type 2 Sister Glaucoma Sister Alcohol abuse Neg Hx Asthma Neg Hx Depression Neg Hx Drug Abuse Neg Hx Gout Neg Hx Leukemia Neg Hx Migraine Neg Hx Multiple Sclerosis Neg Hx Other Neg Hx Thyroid Disease Neg Hx Relation Name Status Comments Brother Father Maternal Grandfather Maternal Grandmother Mother Other Paternal Grandfather Paternal Grandmother Paternal Uncle Sister Social History Tobacco Use Types Packs/Day Years Used Date Smoking Tobacco: Former Cigarettes 0.3 42 1 6 - 2017 Smokeless Tobacco: Current Tobacco Cessation:Ready to Q uit: Not Asked; Counseling Given: Not Answered Alcohol Use Standard Drinks/Week Comments Yes 10 [...] on file Legal Sex 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 Gender Identity Not on file Sexual Orientation Not on file Last Filed Vital Signs Vital Sign Reading Time Taken Comments Blood Pressure 141/89 12/11/2024 10:05 AM CDT Pulse 100 12/11/2024 10:05 AM CDT Temperature 36.8 C (98.2 F) 12/11/2024 10:05 AM CDT Respiratory Rate 11 11/20/2023 1:43 PM CDT Oxygen Saturation 98% 12/11/2024 10:05 AM CDT Inhaled Oxygen Concentration 21% 05/11/2022 8 :58 AM CDT Weight 88.7 kg (195 lb 9.6 oz) 12/11/2024 10:05 AM CDT Height 157.5 cm (5' 2) 12/11/2024 10:05 AM CDT Body Mass Index 35.78 12/11/2024 10:05 AM CDT Plan of Treatment Upcoming Encounters Date Type Department Care Team (Late st Contact Info) Description 12/30/2024 1:30 PM INSURANCE OFFICE SUPERVISOR Office Visit [facility] - Ophthalmology [address] [place] [phone] Aamir Salguero MD [address] [place] [phone] 06/11/2025 11:00 AM CDT Office Visit [facility] - GI [address] [place] [phone] 11/04/2025 10:00 AM CDT Office Visit [facility] - Orthopedic Surgery [facility] [place] [phone] Ralph Walker MD [address] [place] [address] [address] [place] [address] Health Maintenance Due Date Last Done Comments BONE DENSITY TESTING 1960 COLOGUARD (AGES 45-75) - COLON CA SCREENING 1958 COLON MONITORING 1958 COLONOSCOPY - COLON CA SCREENING 1958 CT COLONOGRAPHY - COLON CA SCREENING 1958 Colorectal Cancer Screening 1958 FIT - COLON CA SCREENING 1958 FLEX SIG - COLON CA SCREENING 1958 MAMMOGRAM 1958 Opioid Medication Agreement - Annual 1958 HEPATITIS C SCREENING 01/14/1976 DTAP/TDAP/TD VACCINES (1 - Tdap) 1977 PNEUMOCOCCAL VACCINE 50+ (1 of 1 - PCV) 01/19/2008 ZOSTER VACCINE (1 of 2) 01/19/2008 MEDICARE AWV CALENDAR YEAR 2024 COVID-19 VACCINE (4 - 2024- season) 2024 11/24/2020, 05/23/2020, 04/29/2020 INFLUENZA VACCINE (#1) 2024 1, 11/25/2019, 11/05/2018, Additional history exists SCREENING FOR DIABETES 12/11/2024 2, 03/03/2021, 12/06/2020, Additional history exists Respiratory Syncytial Virus (RSV) Vaccine Pt: or over 60 yrs (1 - 1-dose 75+ series) 2033 DEPRESSION SCREENING Completed 10/29/2024 HEPATITIS B VACCINE Aged Out No longe r eligible based on patient's age to complete this topic HIB VACCINE Aged Out No longer eligi ble based on patient's age to complete this topic HPV VACCINE Aged Out No longer eligi ble based on patient's age to complete this topic MENINGOCOCCAL (Group B) VACCINE SHARED DECISION-MAKING Aged Out No longer eligible based on patient's age to complete this topic MENINGOCOCCAL GROUPS A/C/Y/W VACCINE Aged Out No longer eligible based on patient's age to complete this topic Goals Goal Patient Goal Type Associated Problems [...] one week prior to your last dose Medical Devices Implanted Type Area Rn Bariatric Device Identifier Shelf Expiration Date Model / Serial / Lot Wire Sonja Tim045in 6in 2 Troc Pnt Smth Ss Fx Implanted:Qty: 1 on 03/10/2019 by Hay Little MD at [facility] Right: Hand [employer] 11/07/2022 [id number] / / [id number] Shannan Swivelock Suture Silver Point With Fork Eyelet Implanted:Qty: 1 on 02/17/2020 at [facility] Right: Hand [employer] 09/11/2024 [id number] / / [id number] Cemented Stem Implanted:Qty: 1 on 03/14/2021 by Ralph Walker MD at [facility] Left: Knee [employer] 10/24/2029 [id number] / / [id number] Ins Tib 3-4 15mm Kn Xlpe Dsh Legion Implanted:Qty: 1 on 03/14/2021 by Ralph Walker MD at [facility] Left: Knee [employer] 01/06/2028 [id number] / / [id number] Cmnt Bone Rally 40gm Hvisc Sprmnt Grn Implanted:Qty: 3 on 03/14/2021 by Ralph Walker MD at [facility] Left: Knee [employer] 08/11/2025 [id number] / / [id number] Total Hip Bone Preparation Kit Implanted:Qty: 1 on 03/14/2021 by Ralph Walker MD at [facility] Left: Knee [employer] 12/24/2030 [id number] / / [id number] Description:Cement Restricto rs Screw Bsplt 20mm 6.5mm Gns2 Kn Tib Por Implanted:Qty: 1 on 03/14/2021 by Ralph Walker MD at [facility] Left: Knee [employer] 10/12/2030 [id number] / / [id number] Revision Tibial Baseplate Implanted:Qty: 1 on 03/14/2021 by Ralph Walker MD at [facility] Left: Knee [employer] 05/30/2030 [id number] / / [id number] Screw On Full Stepped Tibial Wedge Implanted:Qty: 1 on 03/14/2021 by Ralph Walker MD at [facility] Left: Knee [employer] 07/27/2029 [id number] / / [id number] Silver Point Sut Healix Adv 5.5mm Bcmps Slf Implanted:Qty: 1 on 05/11/2022 by Deny Miranda MD at [facility] Left: Shoulder [employer] 10/12/2024 [id number] / / [id number] Silver Point Sut Healix Adv 5.5mm Bcmps Slf - S0 Implanted:Qty: 1 on 05/11/2022 by Deny Miranda MD at [facility] Left: Shoulder [employer] 08/11/2024 [id number] / 0 / [id number] Explanted Type Area Rn Bariatric Device Identifier Shelf Expiration Date Model / Serial / Lot Wire K .045in 6in 2 Troc Pnt [facility] Ss Fx Explanted:Qty: 2 on 03/10/2019 by Hay Little MD at [facility] Right: Hand [employer] 11/07/2022 [id number] / / [id number] Stpl Bone 14mmx1.7-1.5mm 4fusion Implanted:Qty: 1 on 03/10/2019 by Hay Little MD at [facility] Explanted:Qty: 1 on 02/17/2020 at [facility] Right: Hand [employer] 12/13/2021 [id number] / / [id number] Procedures Procedure Name Priority Date/Time Associated Diagnosis Comments OPTIC NERVE ANALYSIS OCT Routine 11/25/2024 2:50 PM CDT Primary open angle glaucoma (POAG) of left eye, moderate stage XR KNEE LEFT 4VW OR MORE Routine 10/29/2024 9:58 AM CDT Left knee pain, unspecified chronicity COMPREHENSIVE METABOLIC PANEL Pre-Op 03/03/2021 10:05 AM INSURANCE OFFICE SUPERVISOR Pre-op testing from Last 3 Months or Most Recently Relevant to Health Maintenance Results * OPTIC NERVE ANALYSIS OCT (11/25/2024 2:50 PM CDT) Anatomical Region Laterality Modality Head External-Camera Photography Narrative 11/25/2024 4:19 PM CDT Images from the original result were not included. Review of [employer] OCT-Nerve/GCL: date: (vert C/D), (avg RNFL), (avg GCL), (disc area), (signal strength). 11/25/2024: (0.0.61 OD, 0.0.79 OS), (73 OD, 61 OS), (1.91 OD, 1.70 OS), (8/10 OD, 8/10 OS). us Gerry Vaz MD OPHTHALMOLOGY SCHED BRODERICK Mcgowan Final Result * XR Knee Left 4Vw or More (10/29/2024 9:58 AM CDT) Anatomical Region Laterality Modality Lower Extremity Radiographic Nathalie ging 10/29/2024 10:5 3 AM CDT Narrative 10/29/2024 11:11 AM CDT PROCEDURE: XR KNEE LEFT 4VW OR MORE DATE/TIME OF EXAM: 10/29/2024 9:58 AM CLINICAL INFORMATION: None relevant/not provided if blank. Indication: M25.562: Left knee pain, unspecified chronicity. Additional History: FINDINGS/IMPRESSION: No evidence of periprosthetic fracture or lucency is seen. No joint effusion is seen. Small loose bodies are noted. Postoperative appearance of left knee arthroplasty present. Edited by Annalisa Wilson on 10/29/2024 11:06 AM > Interpreting Provider: Efra Bautista MD on 10/29/2024 11:11 AM Procedure Note Efra Bautista MD - 10/29/2024 PROCEDURE: XR KNEE LEFT 4VW OR MORE DATE/TIME OF EXAM: 10/29/2024 9:58 AM CLINICAL INFORMATION: None relevant/not provided if blank. Indication: M25.562: Left knee pain, unspecified chronicity. Additional History: FINDINGS/IMPRESSION: No evidence of periprosthetic fracture or lucency is seen. No joint effusion is seen. Small loose bodies are noted. Postoperative appearanceof left knee arthroplasty present. Edited by Annalisa Wilson on 10/29/2024 11:06 AM > Interpreting Provider: Efra Bautista MD on 10/29/2024 11:11 AM us Ralph Walker MD DIAGNOSTIC IMAGING ORDERABL ES Final Result * (ABNORMAL) COMPREHENSIVE METABOLIC PANEL (03/03/2021 10:05 AM INSURANCE OFFICE SUPERVISOR) Glucose 94 70 - 105 mg/dL 03/03/2021 10:56 AM [facility] Sodium 140 136 - 145 mmol/L 03/03/2021 10:56 AM [facility] Potassium 3.9 3.5 - 5.1 mmol/L 03/03/2021 10:56 AM [facility] Chloride 106 98 - 107 mmol/L 03/03/2021 10:56 AM [facility] CO2 26 23 - 31 mmol/L 03/03/2021 10:56 AM [facility] Calcium 9.1 8.4 - 10.4 mg/dL 03/03/2021 10:56 AM [facility] Anion Gap 8 8 - 18 mmol/L 03/03/2021 10:56 AM [facility] BUN 13 9.8 - 20.1 mg/dL 03/03/2021 10:56 AM [facility] Creatinine 0.70 0.57 - 1.11 mg/dL 03/03/2021 10:56 AM [facility] Alkaline Phosphatase 84 40 - 150 U/L 03/03/2021 10:56 AM [facility] ALT 27 0 - 61 U/L 03/03/2021 10:56 AM [facility] AST 40(H) 5 - 34 U/L 03/03/2021 10:56 AM INSURANCE OFFICE SUPERVISOR [facility] Protein Total 7.2 6.4 - 8.3 gm/dL 03/03/2021 10:56 AM INSURANCE OFFICE SUPERVISOR [facility] Albumin 4.2 3.2 - 4.6 gm/dL 03/03/2021 10:56 AM INSURANCE OFFICE SUPERVISOR [facility] Bilirubin Total 0.4 0.2 - 1.2 mg/dL 03/03/2021 10:56 AM INSURANCE OFFICE SUPERVISOR [facility] eGFR by MDRD >60 >60 mL/min/1.7 3m2 03/03/2021 10:56 AM INSURANCE OFFICE SUPERVISOR [facility] eGFR by MDRD >60 >60 mL/min/1.7 3m2 03/03/2021 10:56 AM INSURANCE OFFICE SUPERVISOR [facility] Blood BLOOD SPECIMEN / Unknown Venipuncture / Unknown 03/03/2021 10:05 AM INSURANCE OFFICE SUPERVISOR 03/03/2021 10:18 AM INSURANCE OFFICE SUPERVISOR Ralph Walker MD LAB - CHEMISTRY ORDERABLES Final Result Performing Organization Address City/State/[facility] Co de Phone Number [facility] [address] [place] [address] from Last 3 Months or Most Recently Relevant to Health Maintenance Insurance [facility]NAGED MEDICARE ADV MEDICAID - [place] Advance Directives * Full Code (Latest Code Status on File) Date Activated Date Inactivated Comments 03/14/2021 12:36 PM 03/18/2021 5:09 PM * Full Code Date Activated Date Inactivated Comments 06/27/2019 4:05 PM 06/30/2019 1:06 PM * Full Code Date Activated Date Inactivated Comments 03/12/2019 4:00 PM 03/14/2019 12:15 PM [facility] [employer]mat Tanker Driver Relationship Specialty Start Date End Date Marcelino Diaz [address] [place] [phone] PCP - General 03/08/18 Prince Cuellar MD [address] [place] [address] Physician Endocrinology 07/11/18 Pierce Nelson MD [address] [place] [address] Otolaryngology 07/11/18
--- OUTSIDE RECORDS SUMMARY | 2024-12-13 18:23 | XMS_ITS | Encounter Summary ---
Author Organization [facility] Address [address] [facility] [facility] [place] [address] Care Team Providers Care Azure Principal Solution Specialist Name Role Phone Marcelino Diaz Primary Care Provider [phone] Prince Cuellar MD Unavailable Pierce Nelson MD Unavailable [phone] Encounter Details Date Type Department Care Team (Late st Contact Info) Description 12/15/2021 Telephone [facility] [address] [place] [phone] Gerry Vaz MD [address] [place] [address] [place] [address] Social History Tobacco Use Types Packs/Day Years Used Date Smoking Tobacco: Former Cigarettes 0.3 42 1 976 - 2018 Smokeless Tobacco: Never Alcohol Use Standard Drinks/Week Comments Yes 3 (1 standard drink = 0.6 oz pur e alcohol) Daily tequila Comments No Sex and Gender Information Value Date Recorded Sex Assigned at Not on file Legal Sex Female 6:00 AM PEPPER PICKER Gender Identity Not on file Sexual Orientation Not on file documented as of this encounter Functional Status * Is person deaf or have serious hearing difficulty? Answer Date of Assessment Author No 02/17/2020 10:59 AM Thomas Aaron RN * Is person blind or have serious difficulty seeing? Answer Date of Assessment Author No 02/17/2020 10:59 AM Thomas Aaron RN * Does person have serious difficulty walking/climbing stairs? Answer Date of Assessment Author No 02/17/2020 10:59 AM Thomas Aaron RN * Does person have difficulty dressing/bathing? Answer Date of Assessment Author No 02/17/2020 10:59 AM Thomas Aaron RN * Does person have difficulty doing errands alone? Answer Date of Assessment Author No 02/17/2020 10:59 AM Thomas Aaron RN documented as of this encounter Mental Status * Does person have difficulty concentrating/remembering/making decisions? Answer Entry Date Author No 02/17/2020 10:59 AM Thomas Aaron RN documented in this encounter Miscellaneous Notes * Telephone Encounter - Estela Foley - 12/15/2021 9:16 AM CDT Pt accidentally cancel her appt for today and wants a appt as soon as possible. Call [phone] documented in this encounter Plan of Treatment Upcoming Encounters Date Type Department Care Team (Late st Contact Info) Description 12/30/2024 1:30 PM PEPPER PICKER [facility] Op[facility]mology [address] [place] [phone] Aamir Salguero MD [address] [place] [phone] 06/11/2025 11:00 AM CDT Office Visit [facility] - GI [address] [place] [phone] 11/04/2025 10:00 AM CDT Office Visit [facility] - Orthopedic Surgery [address] [place] [phone] Ralph Walker MD [address] [place] [address] [address] [place] [address] documented as of this encounter Goals Goal Patient Goal Type Associated Problems Recent Progress Patient-Stated? Author Mobility General Improving(05/14 11:00 AM CDT) No Ela Smalls, RN Note: Expected end date: 02/12/2020 The goal is to maintain or improve your mobility at the optimum level for you. Interventions: documented as of this encounter Visit Diagnoses Not on filedocumented in this encounter Care Teams Azure Principal Solution Specialist Relationship Specialty Start Date End Date Marcelino Diaz [address] [place] [phone] PCP - General 03/08/18 Prince Cuellar MD [address] [facility] [address] [place] [address] Physician Endocrinology 07/11/18 Pierce Nelson MD [address] [place] [address] Otolaryngology 07/11/18 documented as of this encounter
--- OUTSIDE RECORDS SUMMARY | 2024-12-13 18:23 | XMS_ITS | Encounter Summary ---
Author Organization [facility] Address [facility] [facility] [place] [address] Care Team Providers Care Manager Ccu Name Role Phone Marcelino Diaz Primary Care Provider [phone] Prince Cuellar MD Unavailable [phone] Pierce Nelson MD Unavailable [phone] Reason for Visit * Reason Onset Date Comments MEDICATION REFILL 03/11/2022 Encounter Details Date Type Department Care Team (Late st Contact Info) Description 03/11/2022 Refill [facility], Diabetes and Metabolism [address] [place] [address], [facility] [place] [address] Prince Cuellar MD [address] [place] [address] [place] [address] MEDICATION REFILL Social History Tobacco Use Types Packs/Day Years Used Date Smoking Tobacco: Some Days Cigarettes 0.3 42 Started: 1975; Last attempted to quit: 2017 Smokeless Tobacco: Current Alcohol Use Standard Drinks/Week Comments Yes 3 (1 standard drink = 0.6 oz pur e alcohol) Daily tequila Comments No Sex and Gender Information Value Date Recorded Sex Assigned at Not on file Legal Sex Female 6:00 AM LEARNING DISABILITIES TEACHER Gender Identity Not on file Sexual Orientation [...] encounter Miscellaneous Notes * Telephone Encounter - Giulia Hopkins - 03/15/2022 3:10 PM CST Refill Request Staci Haynes ANJEL: 01/17/2022Dec due: NOV scheduled: Visit date not found LRF: 12/22/2020 Qty Disp: 30 tablet # of refills: 4 Allergies: Allergies Allergen Reactions ??? Aspirin Nausea and/or Vomiting ??? Cymbalta [Duloxetine] Psychiatric Hallucinations ??? Lexapro [Escitalopram] Other Hallucinations ??? Hydrocodone Itching Can tolerate with benadryl ??? Tylenol [Acetaminophen] Swelling Swelling to the face. ??? Codeine Itching Generalized itching. ??? Methocarbamol Psychiatric ??? Hydrocodone-Guaifenesin Itching Pended Medication Order: Requested Prescriptions Pending Prescriptions Disp Refills ??? baclofen (Lioresal) 10 MG tablet 30 tablet 4 Sig: May cause drowsiness. 01/17 NING DISABILITIES TEACHER documented in this encounter Plan of Treatment Upcoming Encounters Date Type Department Care Team (Late st Contact Info) Description 12/30/2024 1:30 PM LEARNING DISABILITIES TEACHER Office Visit [facility] - Ophthalmology [address] [place] [phone] Aamir Salguero MD [address] [place] [address] 06/11/2025 11:00 AM CDT Office Visit [facility] - GI [address] [facility] [place] [address] 11/04/2025 10:00 AM CDT Office Visit [facility] - Orthopedic Surgery [address] [facility] [place] [phone] Ralph Walker MD [address] [facility] [address] [place] [address] documented as of this encounter Goals Goal Patient Goal Type Associated Problems Recent Progress Patient-Stated? Author Mobility General Improving(05/14 11:00 AM CDT) No Ela Smalls, RN Note: Expected end date: 02/12/2020 The goal is to maintain or improve your mobility at the optimum level for you. Interventions: documented as of this encounter Visit Diagnoses Not on filedocumented in this encounter Care Teams Manager Ccu Relationship Specialty Start Date End Date Marcelino Diaz [address] [place] [phone] PCP - General 03/08/18 Prince Cuellar MD [address] [place] [address] Physician Endocrinology 07/11/18 Pierce Nelson MD [address] [place] [address] Otolaryngology 07/11/18 documented as of this encounter
--- OUTSIDE RECORDS SUMMARY | 2024-12-13 18:23 | XMS_ITS | Clinical Summary ---
Author Organization [facility] Address [address] [place] [address] Care Team Providers Care Protective Officer Name Role Phone Marcelino Diaz MD Primary Care Provider [phone] Allergies Active Allergy Reactions Criticality Noted Date Comments Aspirin Nausea And Vomiting Medium 12/29/2019 Codeine Hives Medium 08/03/2015 Duloxetine Hallucinations Medium 08/08/2017 Medications acyclovir (ZOVIRAX) 400 mg tablet TAKE 1 TABLET 2 TIMES DAILY. Active azelastine (ASTELIN) 137 mcg (0.1 %) nasal spray 2 times daily. 15 Active fluticasone (FLONASE) 50 mcg/actuation nasal spray 2 times daily. 12/22/19 15 Active HYDROcodone-acetami nophen (NORCO) 10-325 mg per tabletIndications:P ain every 8 hours. Activ e linaclotide (LINZESS) 290 mcg capsule ONE CAPCULE DAILY Active carboxymethylcell-g lycerin,PF, (REFRESH OPTIVE SENSITIVE, PF,) 0.5-0.9 % dropperette instill to both eyes 6 times a day or more prn. Active phentermine (ADIPEX-P) 37.5 mg tablet Take 37.5 mg by mouth daily. 2 05/26/19 18 Active [facility] dexlansoprazole () 30 mg capsuleIndications: Research study patient 60 mg in the morning, 30 mg in the evening for 4 weeks. 90 capsule 08/22/19 18 Active hydroCHLOROthiazide (MICROZIDE) 12.5 mg capsule 12/19/19 18 Active POTASSIUM CHLORIDE ER 10 mEq CR tablet 12/19/19 18 Active omeprazole (PriLOSEC) 40 mg capsule 12/19/19 18 Active temazepam (RESTORIL) 15 mg capsuleIndications: Insomnia Take 15 mg by mouth nightly. 0 11/22/19 18 Active latanoprost (XALATAN) 0.005 % ophthalmic solution ADMINISTER 1 DROP INTO BOTH EYES NIGHTLY. 2.5 mL 12/28/19 19 Active Additional Information Patient not taking.Reported on 05/06/2024 baclofen (LIORESAL) 10 mg tablet TAKE 1/2 TABLET (5 MG TOTAL) BY MOUTH DAILY WITH DINNER. 15 tablet 2 06/18/19 20 Active levothyroxine (SYNTHROID) 137 mcg tablet Take 1 tablet (137 mcg total) by mouth daily before breakfast 05/15/19 24 Active Hospital, Clinic, or Other Facility Administered Medication Ordered Dose Route Frequency Start Date End Date Status [facility] dexlansoprazole () capsuleIndications:Re search study patient oral See admin instructions 08/22/2017 Active Active Problems Problem Noted Date Diagnosed Date Chronic sinusitis 03/28/2018 Facial pressure 03/28/2018 Combined forms of age-related cataract of both e yes 12/18/2017 Primary open-angle glaucoma, mild stage 12/19/19 18 Postablative hypothyroidism 10/20/2017 Assessment & Plan (10/20/2017 6:28 PM CDT): Clinically euthyroid. She had recent thyroid labs obtained by PCP. We left a VM at Dr. Mcallister's office requesting a copy. Ophthalmic manifestation of Graves disease 10/20 Assessment & Plan (10/20/2017 6:29 PM CDT): She has quit smoking some time ago. Currently has lid irritation from artificial lashes. She will have those removed today. Ms. Haynes continues using her eye drops and will follow up with Dr. Kwong in occuloplastics. Elevated blood pressure reading 10/20/2017 Assessment & Plan (10/20/2017 6:31 PM CDT): Repeated manual BP reading, 120/80. She is currently asymptomatic, will monitor BP at home, and follow up with her PCP Class 1 obesity due to exces s calories without serious comorbidity in adult 10/20/2017 Assessment & Plan (10/20/2017 6:32 PM CDT): She is already on phentermine, per her PCP. Discussed intermittent fasting, increased water intake, intermittent fasting and exercise. Surgical History Surgery Date Site/Laterality Comments ANKLE SURGERY Ankle Surgery - (Added by TW Conv) KNEE SURGERY Knee Surgery - (Added by TW Conv) SINUS SURGERY Sinus Surgery - (Added by TW Conv) NASAL SEPTUM SURGERY Nasal Septal Deviation Repair - (Added by TW Conv) REPLACEMENT TOTAL KNEE PARTIAL KNEE ARTHROPLASTY Medical History Medical History Date Comments Personal history of other en docrine, nutritional and metabolic disease History of thyroid d isease - (Added by TW Conv) Hypertension GERD (gastroesophageal reflux disease) Hypothyroidism Family History Medical History Relation Name Comments Heart attack Brother Family history of myocardial infarction - (Added by TW Conv) Heart attack Father Family history of myocardial infarction - (Added by TW Conv) Diabetes Father's Brother Family hist ory of diabetes mellitus - (Added by TW Conv) Heart disease Mother Family history of cardiac disorder - (Added by TW Conv) Myasthenia gravis Mother Family his tory of myasthenia gravis - (Added by TW Conv) Diabetes Sister Family history of diabetes mellitus - (Added by TW Conv) Relation Name Status Comments Brother Father Father's Brother Mother Sister Social History Tobacco Use Types Packs/Day Years Used Date Smoking Tobacco: Former Smokeless Tobacco: Never Tobacco Cessation:Ready to Q uit: Yes Alcohol Use Standard Drinks/Week Comments Yes 5 (1 standard drink = 0.6 oz pur e alcohol) Comments No Sex and Gender Information Value Date Recorded Sex Assigned at Not on file Legal Sex Female 2:17 AM MANAGER QA Gender Identity Female 12/28/2017 8:57 AM MANAGER QA Sexual Orientation Not on file Obstetrics History Last Filed Vital Signs Vital Sign Reading Time Taken Comments Blood Pressure 149/92 03/28/2018 11:32 AM MANAGER QA Pulse 62 12/28/2017 9:02 AM MANAGER QA Temperature 36.6 C (97.8 F) 12/28/2017 9:02 AM MANAGER QA Respiratory Rate 20 08/08/2017 4:02 PM CDT Oxygen Saturation 98% 08/08/2017 4:02 PM CDT Inhaled Oxygen Concentration - - Weight 80.3 kg (177 lb) 03/28/2018 11:32 AM MANAGER QA Height 157.5 cm (5' 2) 03/28/2018 11:32 AM MANAGER QA Body Mass Index 32.37 03/28/2018 11:32 AM MANAGER QA Plan of Treatment Health Maintenance Due Date Last Done Comments Breast Cancer Screening-Mammogram 1958 Colon Cancer Screening-Colonoscopy 1960 Depression Screening 1958 Fall Risk Assessment 1960 Hepatitis C Screening 1960 Osteoporosis Screening-Bone Density Scan 1958 DTaP/Tdap/Td Vaccine (1 - Tdap) 1969 Hepatitis B Screening 01/19/1976 Zoster Vaccine (2 of 2) 08/08/2022 06/13/2022 Well Visit 65+ 2023 Covid-19 Vaccine (5 - 2024-2 6 season) 2024 10/26/2021, 11/24/2020, 05/23/2020, Additional history exists Influenza Vaccine (#1) 2024 , 11/25/2019, 11/05/2018, Additional history exists Pneumococcal vaccine 65+ Completed 06/06/2022 Insurance [facility] MEDICARE ADVANTAGE [facility] Address[facility] [address] [place] [address] IDPA [employer] MEDICA[facility] MEDICARE ADVANTAGE [facility] MEDIC[facility] Address: [address] [address] [place] [address] [employer] Advance Directives For more information, please contact: [phone] * Full Code (Latest Code Status on File) Date Activated Date Inactivated Comments 08/08/2017 2:23 PM 08/08/2017 6:30 PM Care Teams Protective Officer Relationship Specialty Start Date End Date Marcelino Diaz MD [address] [place] [address] PCP - General 05/09/16
--- OUTSIDE RECORDS SUMMARY | 2024-12-13 18:23 | XMS_ITS | Encounter Summary ---
Author Organization [facility] Address [address] [place] [address] Care Team Providers Care Hand Drawer In Helper Name Role Phone Marcelino Diaz Primary Care Provider [phone] Prince Cuellar MD Unavailable [phone] Pierce Nelson MD Unavailable [phone] Reason for Visit * Reason Onset Date Comments Nurse Only 12/14/2022 Encounter Details Date Type Department Care Team (Late st Contact Info) Description 12/14/2022 Telephone [facility] - Centralized Scheduling [address] [place] [address] Marco Antonio Diamond MD [address] [place] [address] Nurse Only Social History Tobacco Use Types Packs/Day Years Used Date Smoking Tobacco: Former Cigarettes 0.3 42 1 97 - 2018 Smokeless Tobacco: Current Alcohol Use Standard Drinks/Week Comments Yes 3 (1 standard drink = 0.6 oz pur e alcohol) Daily tequila AUDIT-C Answer Date Recorded Q1: How often do you have a drink containing alc ohol? Never 05/11/2022 Q2: How many drinks containi ng alcohol do you have on a typical day when you are drinking? 1 or 2 05/11/2022 Q3: How often do you have six or more drinks on one occasion? Never 05/11/2022 Comments No Sex and Gender Information Value Date Recorded Sex Assigned at Not on file Legal Sex Female 6:00 AM RETAIL CASHIER ASSOCIATE Gender Identity Not on file Sexual Orientation [...] encounter Miscellaneous Notes * Telephone Encounter - Maggie Bolaños - 12/14/2022 11:18 AM CDT Pt calling had laser surgery with Dr. Diamond in April, pt need to see Dr Diamond for POS, pt stated she need to see him before seeing Dr Vaz, on 01/02/23 documented in this encounter Plan of Treatment Upcoming Encounters Date Type Department Care Team (Late st Contact Info) Description 12/30/2024 1:30 PM RETAIL CASHIER ASSOCIATE Office Visit [facility] - Ophthalmology [address] [place] [phone] Aamir Salguero MD [address] [place] [phone] 06/11/2025 11:00 AM CDT Office Visit [facility] - GI [address] [place] [phone] 11/04/2025 10:00 AM CDT Office Visit [facility] - Orthopedic Surgery [address] [place] [phone] Ralph Walker MD [address] [facility] [address] [place] [address] documented as of this encounter Goals Goal Patient Goal Type Associated Problems Recent Progress Patient-Stated? Author Mobility General Improving(05/14 11:00 AM CDT) No Ela Smalls, RN Note: Expected end date: 02/12/2020 The goal is to maintain or improve your mobility at the optimum level for you. Interventions: documented as of this encounter Visit Diagnoses Not on filedocumented in this encounter Care Teams Hand Drawer In Helper Relationship Specialty Start Date End Date Marcelino Diaz [address] [place] [phone] PCP - General 03/08/18 Prince Cuellar MD [facility] [address] [place] [address] Physician Endocrinology 07/11/18 Pierce Nelson MD [address] [facility] [address] [place] [address] Otolaryngology 07/11/18 documented as of this encounter
--- OUTSIDE RECORDS SUMMARY | 2024-12-13 18:23 | XMS_ITS | Encounter Summary ---
Author Organization [facility] Address [address] [place] [address] Care Team Providers Care Supervisor Transcribing Operators Name Role Phone Marcelino Diaz MD Primary Care Provider [phone] Encounter Details Date Type Department Care Team (Latest Contact Info) Description 12/18/2017 Abstract [facility] Donovan Wilson MD Social History Tobacco Use Types Packs/Day Years Used Date Smoking Tobacco: Never Assessed Comments Unknown Sex and Gender Information Value Date Recorded Sex Assigned at Not on file Legal Sex Female 6:56 PM CDT Gender Identity Not on file Sexual Orientation Not on file documented as of this encounter Plan of Treatment Upcoming Encounters Date Type Department Care Team (Late st Contact Info) Description 05/19/2025 10:00 AM CDT Office Visit [facility] Multispecialty Care - [facility] [address] [facility] [address] [place] [address] Fili Jarrell DO [address] [facility] [address] [place] [address] documented as of this encounter Visit Diagnoses Not on filedocumented in this encounter Care Teams Supervisor Transcribing Operators Relationship Specialty Start Date End Date Marcelino Diaz MD PCP - General 07/13/15 documented as of this encounter
[2024-12-13 18:25] VITALS: BP 135/91; PULSE 99; RESP 16; TEMP 36.6; O2SAT 100
--- NOTE | 2024-12-13 20:10 | ED_ITS ---
HPI - Fall General Chief Complaint: Fall Stated Complaint: RLE injury Time Seen by Provider: 12/13/24 19:58 History of Present Illness HPI Narrative: 64-year-old female with history of tendinopathy presenting to the emergency department with a ground level fall. Patient states she tripped over clothes rack while she was buying things of [employer] and landed on her left side. Did not strike her head or lose consciousness. Not on any blood thinner medications. Having pain to her left wrist, right tib-fib region and left forearm where she landed. No step-offs deformities and she was ambulatory. No other symptoms or concerns. Related Data Home Medications ?Medication ?Instructions ?Recorded ?Confirmed ?Last Taken ?Type amlodipine 5 mg tablet 5 mg PO DAILY 06/06/2208/27 Unknown History azelastine 137 mcg (0.1 %) nasal 137 mcg intranasal Q1 2H 06/06/22 06/12/23 Unknown History spray baclofen 10 mg tablet 10 mg PO DAILY 06/06/2208/12 Unknown History hydrochlorothiazide 12.5 mg capsule 12.5 mg PO DAILY 0 06/06/22 08/27/24 Unknown History hydrocodone 10 mg-acetaminophen 15 ml PO Q12H PRN 05/1408/27/24 Unknown History 325 mg/15 mL (15 mL) oral solution levothyroxine 137 mcg capsule 137 mcg PO DAILY 3 08/27/24 Unknown History linaclotide 290 mcg capsule 290 mcg PO DAILY 06/06/22 08/27/24 Unknown History (Linzess) omeprazole 40 mg capsule,delayed 40 mg PO DAILY 08/27/24 Unknown History release potassium chloride 10 mEq 10 meq PO DAILY 06/06/22 Unknown History capsule,extended release Allergies Allergy/AdvReac Type Severity Reaction Status Date / Time acetaminophen (From Tylenol) Allergy Mild itching Verified 12/13/24 18:27 codeine Allergy Mild Hives / Verified 12/13/24 18:27 Red Face aspirin Allergy Unknown Rash Verified 12/13/24 18:27 Review of Systems Review of Systems: As reviewed above in HPI [facility] Past Medical History Medical History Depression Graves disease High cholesterol Screening mammogram, encounter for Surgical History Surgical History H/O liposuction of abdomen (07/22/22) had open wound after Hx of LASIK History of orthopedic surgery (05/11/22) left shoulder surgery History of knee replacement (03/14/21) left knee replacement Family History Family History Father Cerebrovascular accident Mother Alzheimer disease Other Breast cancer maternal aunt Sibling Cerebrovascular accident brother Social History Social History Smoking status: Never smoker Tobacco type: cigarettes Second hand tobacco smoke exposure: No Smoking end date: 05/13/20 Alcohol intake: current Drinks per week: 2 Substance use: never Substance use type: does not use Do You Feel Safe in your Home?: Yes Lack of Transportation: No Current Housing: Decline to Answer Concerned About Future Housing: Decline to Answer Difficulty Paying Gas/Electric Bills: Decline to Answer Difficulty Paying for Meds: Decline to Answer Currently Unemployed: Decline to Answer Education: Decline to Answer Difficulty w/ Childcare or Family Care: Decline to Answer Living arrangements: other Additional living arrangements comments: single Occupation/Education: unemployed Additional occupation/education comments: disabled Gender identity (if verbalized by the patient): Female Sexual Orientation (if Verbalized by the Patient): Straight or Heterosexual Exam Narrative: GENERAL: [Well-appearing, well-nourished, and in no acute distress.] HEAD: [Normocephalic, atraumatic.] EYES: [PERRLA and EOMI.] ENT: Nares clear, no rhinorrhea or epistaxis. Mucous membranes moist. NECK: Supple. CHEST: [Clear to auscultation. No respiratory distress.] HEART: [Regular rate and rhythm]. No murmur heard. [Normal peripheral pulses.] ABDOMEN: [Soft, nondistended], [nontender], [No rigidity or guarding] EXTREMITIES: Normal range of motion. Ambulatory with normal gait. No edema in the extremities. No step-offs deformities. Strong pulses throughout warm extremities. SKIN: Warm, dry, no rash. NEURO: [No focal deficits]. Alert and oriented [x3.] PSYCH: [Normal mood and affect.] Course Vital Signs Vital signs: Vital Signs Temperature 36.6 C 12/13/24 18:25 Pulse Rate 99 12/13/24 18:25 Respiratory Rate 16 12/13/24 18:25 Blood Pressure 135/91 H 12/13/24 18:25 Pulse Oximetry 100 12/13/24 18:25 Oxygen Delivery Room Air 12/13/24 18:25 Temperature 36.6 C 12/13/24 18:25 Pulse Rate 99 12/13/24 18:25 Respiratory Rate 16 12/13/24 18:25 Blood Pressure 135/91 H 12/13/24 18:25 Pulse Oximetry 100 12/13/24 18:25 Oxygen Delivery Room Air 12/13/24 18:25 MDM - Fall MDM Narrative Medical decision making narrative: 64-year-old female with history of tendinopathy presenting to the emergency department with a ground level fall. Patient states she tripped over clothes rack while she was buying things of [employer] and landed on her left side. Did not strike her head or lose consciousness. Not on any blood thinner medications. Having pain to her left wrist, right tib-fib region and left forearm where she landed. No step-offs deformities and she was ambulatory. No other symptoms or concerns. Patient has an unremarkable physical examination with normal vital signs. Given oxycodone for pain given her allergies to Tylenol and ibuprofen. X-rays of the wrist tib-fib in forearm were obtained and independently reviewed and negative for any acute injury. Patient relieved by this and safe for discharge home at this time. Encouraged to take ackj-fvz-[id number] therapies and heat/ice for comfort. Ambulatory and safe for discharge. Medical Records Attestation: I reviewed the patient's medical records. Imaging Data Attestation: I personally reviewed and interpreted this imaging study as follows: My impression: Impressions Forearm X-Ray 12/13/24 19:59 Impression: No acute fracture or malalignment. Tibia/Fibula X-Ray 12/13/24 20:00 Impression: No acute fracture or malalignment. Wrist X-Ray 12/13/24 20:00 Impression: No acute fracture or malalignment. Discharge Plan Discharge Clinical Impression: Ground-level fall Patient Disposition: Home Condition: Stable Instructions: Antibiotic Form Additional Instructions: No sustained injuries on the x-rays. Follow-up with regular doctor. Apply ice and heat for comfort. Take awvn-drk-[id number] pain control medications. Return with any emergent concerns. Patient Language: Syrian Prescriptions: No Action potassium chloride 10 mEq capsule, extended release 10 meq PO DAILY amlodipine 5 mg tablet 5 mg PO DAILY omeprazole 40 mg capsule,delayed release(DR/EC) 40 mg PO DAILY baclofen 10 mg tablet 10 mg PO DAILY hydrochlorothiazide 12.5 mg capsule 12.5 mg PO DAILY azelastine 137 mcg (0.1 %) aerosol,spray 137 mcg intranasal Q12H Rx Instructions: administer into each nostril levothyroxine 137 mcg capsule 137 mcg PO DAILY hydrocodone-acetaminophen 10-325 mg/15 mL(15 mL) solution 15 ml PO Q12H PRN Linzess 290 mcg capsule 290 mcg PO DAILY acyclovir 400 mg tablet 400 mg PO BID Qty: 180 3RF Follow-up/Referrals: Emily,Marcelino Cassidy MD [Primary Care Provider, Unknown]
--- OUTSIDE RECORDS SUMMARY | 2024-12-13 20:16 | XMS_ITS | Encounter Summary ---
Author Organization [facility] Address [address] [place] [address] Care Team Providers Care Economic Development Director Name Role Phone Marcelino Diaz Primary Care Provider [phone] Prince Cuellar MD Unavailable [phone] Pierce Nelson MD Unavailable [phone] Reason for Visit * Reason Onset Date Comments MEDICATION REFILL 12/12/2024 Encounter Details Date Type Department Care Team (Late st Contact Info) Description 12/12/2024 Refill [facility] [address], [address] [place] [address] Annalisa Corado PA-C [address] [place] [address] MEDICATION REFILL Social History Tobacco [...] on file Legal Sex Female 6:00 AM BOLT MAN Gender Identity Not on file Sexual Orientation [...] Aaron Wilson RN * Does person have serious [...] st Contact Info) Description 12/30/2024 1:30 PM BOLT MAN Office Visit [facility] - Ophthalmology [address] [place] [phone] Aamir Salguero MD [address] [place] [phone] 06/11/2025 11:00 AM CDT Office Visit [facility] [address] [place] [address] [place] [phone] 11/04/2025 10:00 AM CDT Office Visit [facility] - Orthopedic Surgery [address] [place] [phone] Ralph Walker MD [address] [facility] [address] [place] [address] documented as of this encounter Goals Goal [...] on filedocumented in this encounter Care Teams Economic Development Director Relationship Specialty Start Date End Date Marcelino Diaz [address] [place] [phone] PCP - General 03/08/18 Prince Cuellar MD [address] [facility] [address] [place] [address] Physician Endocrinology 07/11/18 Pierce Nelson MD [address] [facility] [address] [place] [address] Otolaryngology 07/11/18 documented as of this encounter
--- OUTSIDE RECORDS SUMMARY | 2024-12-13 20:17 | XMS_ITS | Encounter Summary ---
Author Organization [facility] Address [address] [facility] [place] [address] Care Team Providers Care Bell Spinner Sousaphones Name Role Phone Marcelino Diaz Primary Care Provider [phone] Prince Cuellar MD Unavailable [phone] Pierce Nelson MD Unavailable [phone] Encounter Details Date Type Department Care Team (Late st Contact Info) Description 12/15/2021 Telephone [facility] [address] [place] [phone] Gerry Vaz MD [address] [place] [address] [place] [address] Social History Tobacco Use Types Packs/Day Years Used Date Smoking Tobacco: Former Cigarettes 0.3 42 1 976 - 2018 Smokeless Tobacco: Never Alcohol Use Standard Drinks/Week Comments Yes 3 (1 standard drink = 0.6 oz pur e alcohol) Daily tequila Comments No Sex and Gender Information Value Date Recorded Sex Assigned at Not on file Legal Sex Female 6:00 AM ACCOUNT SOLUTIONS ANALYST Gender Identity Not on file Sexual Orientation [...] a appt as soon as possible. Call [phone] documented in this encounter Plan of Treatment Upcoming Encounters Date Type Department Care Team (Late st Contact Info) Description 12/30/2024 1:30 PM ACCOUNT SOLUTIONS ANALYST [facility] [address] [place] [phone] Aamir Salguero MD [address] [place] [phone] 06/11/2025 11:00 AM CDT Office Visit [facility] [address] [place] [phone] 11/04/2025 10:00 AM CDT Office Visit [facility] - Orthopedic Surgery [address] [place] [phone] Ralph Walker MD [address] [place] [address] [address] [place] [address] documented as of this encounter Goals Goal Patient Goal Type Associated Problems Recent Progress Patient-Stated? Author Mobility General Improving(05/14 11:00 AM CDT) No Ela Smalls, RN Note: Expected end date: 02/12/2020 The goal is to maintain or improve your mobility at the optimum level for you. Interventions: documented as of this encounter Visit Diagnoses Not on filedocumented in this encounter Care Teams Bell Spinner Sousaphones Relationship Specialty Start Date End Date Marcelino Diaz [address] [place] [phone] PCP - General 03/08/18 Prince Cuellar MD [address] [facility] [address] [place] [phone] Physician Endocrinology 07/11/18 Pierce Nelson MD [address] [place] [phone] Otolaryngology 07/11/18 documented as of this encounter
--- OUTSIDE RECORDS SUMMARY | 2024-12-13 20:17 | XMS_ITS | Clinical Summary ---
Author Organization [facility] [employer] Address [address] [place] [address] Care Team Providers Care Coal Tower Operator Name Role Phone Marcelino Diaz Primary Care Provider [phone] Prince Cuellar MD Unavailable [phone] Pierce Nelson MD Unavailable [phone] Source Comments [facility],non-owned Affiliates and Associated Physician Practices is amultiple site organization consisting of ambulatory clinics and hospital sitesin [place], [place], [place] and [place]. This disclosure is being madepursuant to the Care Everywhere program and may not contain all information available regarding this patient. Last updated 17.[facility] Allergies Active Allergy Reactions Criticality Noted Date [...] fluticasone propionate (FLONASE) 50 MCG/ACT nasal spray [place] 1 (one) spray into each nostril once daily 01/24/20 19 Active atorvastatin (LIPITOR) 40 MG tablet Take 1 (one) tablet by mouth at bedtime 05/05/19 21 Active phentermine (ADIPEX-P) 37.5 MG tablet Take 1 (one) tablet by mouth daily before breakfast Active Azelastine HCl 137 MCG/SPRAY SOLN [place] 2 sprays into each nostril 2 times [...] once daily 09/18/19 24 Active HYDROcodone-acet aminophen ([place]) 7.5-325 MG tabletIndication s:Carpal tunnel syndrome of left wrist Take 1 (one) tablet by mouth every 6 hours as needed for Pain 28 tablet 11/20/19 24 Active active leptospermum honey (Cellwitch) GEL gel Apply to affected area once [...] 2018, the patient was followed elsewhere including [facility] with a working diagnosis of open-angle glaucoma. [...] 12/12/2024 Refill [facility] , [address] [phone] Annalisa Corado PA-C MEDICATION REFILL 12/11/2024 10:00 AM CDT Office Visit [facility] - [facility] [address] [place] [phone] Sg Leroy MD Gastroesophageal reflux disease without esophagitis (Primary Dx); Chronic constipation 12/11/2024 Travel 12/10/2024 Travel 11/30/2024 Refill [facility] - Orthopedics [address] [place] [phone] Marc Hickman APRN-EDUCATION INSTRUCTOR Refill Request 11/25/2024 2:50 PM CDT Clinical Support [facility] - Ophthalmology [address] [place] [phone] Gerry Vaz MD Primary open angle glaucoma (POAG) of left eye, moderate stage (Primary Dx) 11/25/2024 2:00 PM CDT Office Visit [facility] - Ophthalmology [address] [place] [phone] Gerry Vaz MD Nuclear sclerotic cataract of both eyes (Primary Dx); Primary open angle glaucoma (POAG) of left eye, moderate stage 11/25/2024 Travel 10/29/2024 10:30 AM CDT Office Visit [facility] - Orthopedic Surgery [address] [place] [phone] Ralph Walker MD History of total left knee replacement (Primary Dx) 10/29/2024 9:53 AM CDT - 10/29/2024 11:59 PM CDT Hospital Encounter [facility] - Orthopedics [address] [place] [address], [address] [place] [address] Ralph Walker MD Discharge Disposition: Home or Self Care 10/29/2024 Travel 10/03/2024 Orders Only [facility] - Orthopedic Surgery [address] [place] [phone] Ralph Walker MD Left knee pain, unspecified chronicity 10/01/2024 Refill [facility] - Endocrinology [address] [place] [phone] Gerry Sommer MD MEDICATION REFILL 09/18/2024 10:30 AM CDT - 09/18/2024 11:59 PM CDT Hospital Encounter [facility] [address] [place] [phone] Jai Vazquez MD Rudd, Jason, MENG Hand/Upper Extremity Surgery Discharge Disposition: Home or Self Care 09/18/2024 10:00 AM CDT Office Visit [facility] - Orthopedics [address] [place] [phone] Jackie Gentile MD Dhawan, Vikas, MD Arthritis [...] on file Legal Sex Female 6:00 AM RIB MATCHER AND FITTER Gender Identity Not on file Sexual Orientation [...] st Contact Info) Description 12/30/2024 1:30 PM RIB MATCHER AND FITTER Office Visit [facility] [address] [place] [phone] Aamir Salguero MD [address] [place] [phone] 06/11/2025 11:00 AM CDT Office Visit [facility] [address] [place] [phone] 11/04/2025 10:00 AM CDT Office Visit [facility] - Orthopedic Surgery [facility] [place] [phone] Ralph Walker MD [address] [place] [address] [address] [place] [address] Health Maintenance Due Date Last Done Comments [...] last dose Medical Devices Implanted Type Area Continuous Process Coffee Roaster Device Identifier Shelf Expiration Date Model / Serial / Lot Wire Sonja Tim045in 6in 2 Troc Pnt Smth Ss Fx Implanted:Qty: 1 on 03/10/2019 by Hay Little MD at [facility] Right: Hand [employer] 11/07/2022 [id number] / / [id number] Shannan Swivelock Suture [place] With Fork Eyelet Implanted:Qty: 1 on 02/17/2020 at [facility] Right: Hand [employer] 09/11/2024 [id number] / / [id number] Cemented Stem Implanted:Qty: 1 on 03/14/2021 by Ralph Walker MD at [place] [facility] Left: Knee [employer] 10/24/2029 [id number] / / [id number] Ins Tib 3-4 15mm Kn Xlpe Dsh Legion Implanted:Qty: 1 on 03/14/2021 by Ralph Walker MD at [facility] Left: Knee [employer] 01/06/2028 [id number] / / [id number] Cmnt Bone Rally 40gm Hvisc Sprmnt Grn Implanted:Qty: 3 on 03/14/2021 by Ralph Walker MD at [facility] Left: Knee [employer] 08/11/2025 [id number] / / [id number] Total Hip Bone Preparation Kit Implanted:Qty: 1 on 03/14/2021 by Ralph Walker MD at [facility] Left: Knee [employer] 12/24/2030 [id number] / / [id number] Description:Cement Restricto rs Screw Bsplt 20mm 6.5mm Gns2 Kn Tib Por Implanted:Qty: 1 on 03/14/2021 by Ralph Walker MD at [facility] Left: Knee [employer] 10/12/2030 [id number] / / [id number] Revision Tibial Baseplate Implanted:Qty: 1 on 03/14/2021 by Ralph Walker MD at [facility] Left: Knee [employer] 05/30/2030 [id number] / / [id number] Screw On Full Stepped Tibial Wedge Implanted:Qty: 1 on 03/14/2021 by Ralph Walker MD at [facility] Left: Knee [employer] 07/27/2029 [id number] / / [id number] [place] Sut Healix Adv 5.5mm Bcmps Slf Implanted:Qty: 1 on 05/11/2022 by Deny Miranda MD at [facility] Left: Shoulder [employer] 10/12/2024 [id number] / / [id number] [place] Sut Healix Adv 5.5mm Bcmps Slf - S0 Implanted:Qty: 1 on 05/11/2022 by Deny Miranda MD at [facility] Left: Shoulder [employer] 08/11/2024 [id number] / 0 / [id number] Explanted Type Area Continuous Process Coffee Roaster Device Identifier Shelf Expiration Date Model / Serial / Lot Wire K .045in 6in 2 Troc Pnt [facility] Ss Fx Explanted:Qty: 2 on 03/10/2019 by Hay Little MD at [facility] Right: Hand [employer] 11/07/2022 [id number] / / [id number] Stpl Bone 14mmx1.7-1.5mm 4fusion Implanted:Qty: 1 on 03/10/2019 by Hay Little MD at [facility] Explanted:Qty: 1 on 02/17/2020 at [facility] Right: Hand [employer] 12/13/2021 [id number] / / [id number] Procedures Procedure Name Priority Date/Time Associated Diagnosis Comments OPTIC NERVE ANALYSIS OCT Routine 11/25/2024 2:50 PM CDT Primary open angle glaucoma (POAG) of left eye, moderate stage XR KNEE LEFT 4VW OR MORE Routine 10/29/2024 9:58 AM CDT Left knee pain, unspecified chronicity COMPREHENSIVE METABOLIC PANEL Pre-Op 03/03/2021 10:05 AM RIB MATCHER AND FITTER Pre-op testing from Last 3 Months or [...] (ABNORMAL) COMPREHENSIVE METABOLIC PANEL (03/03/2021 10:05 AM RIB MATCHER AND FITTER) Glucose 94 70 - 105 mg/dL 03/03/2021 10:[address] [facility] Sodium 140 136 - 145 mmol/L 03/03/2021 10:56 AM [facility] Potassium 3.9 3.5 - 5.1 mmol/L 03/03/2021 10:[address] [facility] Chloride 106 98 - 107 mmol/L 03/03/2021 10:[address] [facility] CO2 26 23 - 31 mmol/L 03/03/2021 10:56 AM [facility] Calcium 9.1 8.4 - 10.4 mg/dL 03/03/2021 10:[address] [facility] Anion Gap 8 8 - 18 mmol/L 03/03/2021 10:[address] [facility] BUN 13 9.8 - 20.1 mg/dL 03/03/2021 10:[address] [facility] Creatinine 0.70 0.57 - 1.11 mg/dL 03/03/2021 10:[address] [facility] Alkaline Phosphatase 84 40 - 150 U/L 03/03/2021 10:[address] [facility] ALT 27 0 - 61 U/L 03/03/2021 10:[address] [facility] AST 40(H) 5 - 34 U/L 03/03/2021 10:56 AM [facility] [employer] [facility] Protein Total 7.2 6.4 - 8.3 gm/dL 03/03/2021 10:56 AM RIB MATCHER AND FITTER [facility] Albumin 4.2 3.2 - 4.6 gm/dL 03/03/2021 10:56 AM RIB MATCHER AND [employer]TER [facility] Bilirubin Total 0.4 0.2 - 1.2 mg/dL 03/03/2021 10:56 AM RIB MATCHER AND FITTER [facility] eGFR by MDRD >60 >60 mL/min/1.7 3m2 03/03/2021 10:56 AM RIB MATCHER AND FITTER [facility] eGFR by MDRD >60 >60 mL/min/1.7 3m2 03/03/2021 10:56 AM RIB MATCHER AND FITTER [facility] Blood BLOOD SPECIMEN / Unknown Venipuncture / Unknown 03/03/2021 10:05 AM RIB MATCHER AND FITTER 03/03/2021 10:18 AM RIB MATCHER AND FITTER Ralph Walker MD LAB - CHEMISTRY ORDERABLES Final Result Performing Organization Address City/State/[facility] Co de Phone Number [facility] [address] [place] [address] from Last 3 Months or Most Recently Relevant to Health Maintenance Insurance [facility] MANAGED MEDICARE ADV MEDICAID - [place] Advance Directives * Full Code (Latest Code Status on File) Date Activated Date Inactivated Comments 03/14/2021 12:36 PM 03/18/2021 5:09 PM * Full Code Date Activated Date Inactivated Comments 06/27/2019 4:05 PM 06/30/2019 1:06 PM * Full Code Date Activated Date Inactivated Comments 03/12/2019 4:00 PM 03/14/2019 12:15 PM Care Teams Coal Tower Operator Relationship Specialty Start Date End Date Marcelino Diaz [address] [place] [phone] PCP - General 03/08/18 Prince Cuellar MD [address] [place] [address] Physician Endocrinology 07/11/18 Pierce Nelson MD [address] [place] [address] Otolaryngology 07/11/18
--- OUTSIDE RECORDS SUMMARY | 2024-12-13 20:17 | XMS_ITS | Encounter Summary ---
Author Organization [facility] Address [address] [place] [address] Care Team Providers Care Forest Science Professor Name Role Phone Marcelino Diaz Primary Care Provider [phone] Prince Cuellar MD Unavailable [phone] Pierce Nelson MD Unavailable [phone] Reason for Visit * Reason Onset Date Comments Nurse Only 12/14/2022 Encounter Details Date Type Department Care Team (Late st Contact Info) Description 12/14/2022 Telephone [facility] - Centralized Scheduling [address] [place] [address] Marco Antonio Diamond MD [address] [place] [address] Nurse Only Social History Tobacco [...] on file Legal Sex Female 6:00 AM PROTEIN CHEMIST Gender Identity Not on file Sexual Orientation [...] st Contact Info) Description 12/30/2024 1:30 PM PROTEIN CHEMIST Office Visit [facility] - Ophthalmology [address] [place] [phone] Aamir Salguero MD [address] [place] [phone] 06/11/2025 11:00 AM CDT Office Visit [facility] - GI [address] [place] [phone] 11/04/2025 10:00 AM CDT Office Visit [facility] - Orthopedic Surgery [address] [place] [address] Ralph Walker MD [address] [facility] [address] [place] [address] documented as of this encounter Goals Goal Patient Goal Type Associated Problems Recent Progress Patient-Stated? Author Mobility General Improving(05/14 11:00 AM CDT) No Ela Smalls, RN Note: Expected end date: 02/12/2020 The goal is to maintain or improve your mobility at the optimum level for you. Interventions: documented as of this encounter Visit Diagnoses Not on filedocumented in this encounter Care Teams Forest Science Professor Relationship Specialty Start Date End Date Marcelino Diaz [address] [place] [phone] PCP - General 03/08/18 Prince Cuellar MD [facility]0 [facility] [address] [place] [address] Physician Endocrinology 07/11/18 Pierce Nelson MD [address] [facility] [address] [place] [address] Otolaryngology 07/11/18 documented as of this encounter
--- OUTSIDE RECORDS SUMMARY | 2024-12-13 20:17 | XMS_ITS | Encounter Summary ---
Author Organization [facility] Address [address] [place] [address] Care Team Providers Care Golf Club Weigher Name Role Phone Marcelino Diaz MD Primary Care Provider Encounter Details Date Type Department Care Team (Latest Contact Info) Description 12/18/2017 Abstract [facility] Donovan Wilson MD Social [...] Description 05/19/2025 10:00 AM CDT Office Visit [facility] Multispecialty Care - [facility] [address] [place] [address] Fili Jarrell DO [address] [facility] [address] [place] [address] documented as of this encounter Visit Diagnoses Not on filedocumented in this encounter Care Teams Golf Club Weigher Relationship Specialty Start Date End Date Marcelino Diaz MD PCP - General 07/13/15 documented as of this encounter
--- OUTSIDE RECORDS SUMMARY | 2024-12-13 20:17 | XMS_ITS | Clinical Summary ---
Author Organization [facility] Address [address] [place] [address] Care Team Providers Care Cistern Room Working Supervisor Name Role Phone aMrcelino Diaz MD Primary Care Provider [phone] Allergies Active Allergy Reactions Criticality Noted Date [...] by mouth daily. 2 05/26/19 18 Active [facility] dexlansoprazole () 30 mg capsuleIndications: Research study [...] Route Frequency Start Date End Date Status [facility] dexlansoprazole () capsuleIndications:Re search study patient oral [...] on file Legal Sex Female 2:17 AM COPPER PLATE PRINTER Gender Identity Female 12/28/2017 8:57 AM COPPER PLATE PRINTER Sexual Orientation Not on file Obstetrics History Last Filed Vital Signs Vital Sign Reading Time Taken Comments Blood Pressure 149/92 03/28/2018 11:32 AM COPPER PLATE PRINTER Pulse 62 12/28/2017 9:02 AM COPPER PLATE PRINTER Temperature 36.6 C (97.8 F) 12/28/2017 9:02 AM COPPER PLATE PRINTER Respiratory Rate 20 08/08/2017 4:02 PM CDT Oxygen Saturation 98% 08/08/2017 4:02 PM CDT Inhaled Oxygen Concentration - - Weight 80.3 kg (177 lb) 03/28/2018 11:32 AM COPPER PLATE PRINTER Height 157.5 cm (5' 2) 03/28/2018 11:32 AM COPPER PLATE PRINTER Body Mass Index 32.37 03/28/2018 11:32 AM COPPER PLATE PRINTER Plan of Treatment Health Maintenance Due Date [...] exists Pneumococcal vaccine 65+ Completed 06/06/2022 Insurance [facility] MEDICARE ADVANTAGE IDPA [facility] MEDICAID [facility] MEDICARE ADVANTAGE IDPA Advance Directives For more information, please contact: [phone] * Full Code (Latest Code Status on File) Date Activated Date Inactivated Comments 08/08/2017 2:23 PM 08/08/2017 6:30 PM Care Teams Cistern Room Working Supervisor Relationship Specialty Start Date End Date Marcelino Diaz MD [address] [place] [phone] PCP - General 05/09/16
--- OUTSIDE RECORDS SUMMARY | 2024-12-13 20:17 | XMS_ITS | Encounter Summary ---
Author Organization [facility] Address [facility] [facility] [facility] [place] [address] Care Team Providers Care Coremaking Supervisor Name Role Phone Marcelino Diaz Primary Care Provider [phone] Prince Cuellar MD Unavailable [phone] Pierce Nelson MD Unavailable [phone] Reason for Visit * Reason Onset Date Comments MEDICATION REFILL 03/11/2022 Encounter Details Date Type Department Care Team (Late st Contact Info) Description 03/11/2022 Refill [facility], Diabetes and Metabolism [address] [place] [address], [facility] [place] [address] Prince Cuellar MD [address] [place] [address] [place] [address] MEDICATION REFILL Social History Tobacco Use Types [...] on file Legal Sex Female 6:00 AM CREDIT REPORTING CLERK Gender Identity Not on file Sexual Orientation [...] tablet 4 Sig: May cause drowsiness. 01/17 IT REPORTING CLERK documented in this encounter Plan of Treatment Upcoming Encounters Date Type Department Care Team (Late st Contact Info) Description 12/30/2024 1:30 PM CREDIT REPORTING CLERK Office Visit [facility] - Ophthalmology [address] [place] [phone] Aamir Salguero MD [address] [place] [address] 06/11/2025 11:00 AM CDT Office Visit [facility] [address] [facility] [place] [address] 11/04/2025 10:00 AM CDT Office Visit [facility] - Orthopedic Surgery [address] [place] [phone] Ralph Walker MD [address] [facility] [address] [place] [address] documented as of this encounter Goals Goal Patient Goal Type Associated Problems Recent Progress Patient-Stated? Author Mobility General Improving(05/14 11:00 AM CDT) No Ela Smalls, RN Note: Expected end date: 02/12/2020 The goal is to maintain or improve your mobility at the optimum level for you. Interventions: documented as of this encounter Visit Diagnoses Not on filedocumented in this encounter Care Teams Coremaking Supervisor Relationship Specialty Start Date End Date Marcelino Diaz [address] [place] [phone] PCP - General 03/08/18 Prince Cuellar MD [address] [place] [address] Physician Endocrinology 07/11/18 Pierce Nelson MD [address] [place] [address] Otolaryngology 07/11/18 documented as of this encounter
--- OUTSIDE RECORDS SUMMARY | 2024-12-13 20:17 | XMS_ITS | Clinical Summary ---
Author Organization [facility] Address [address] [place] [address] Care Team Providers Care Accountant Auditor Name Role Phone Marcelino Diaz MD Primary Care Provider [phone] Allergies Active Allergy Reactions Criticality Noted Date [...] Comments Blood Pressure 176/115 12/20/2020 5:10 PM BRONZE CHASER Pulse 94 12/20/2020 5:10 PM BRONZE CHASER Temperature 37.1 C (98.7 F) 12/20/2020 4:56 PM BRONZE CHASER Respiratory Rate 19 12/20/2020 5:10 PM BRONZE CHASER Oxygen Saturation 98% 12/20/2020 5:10 PM BRONZE CHASER Inhaled Oxygen Concentration - - Weight 83.9 kg (185 lb) 12/20/2020 2:26 PM BRONZE CHASER Height 157.5 cm (5' 2) 12/20/2020 2:26 PM BRONZE CHASER Body Mass Index 33.84 12/20/2020 2:26 PM BRONZE CHASER Plan of Treatment Upcoming Encounters Date Type Department Care Team (Late st Contact Info) Description 05/19/2025 10:00 AM CDT Office Visit [facility]ialty Care - [facility] [address] [place] [address] Fili Jarrell DO [address] [facility] [address] [place] [address] Health Maintenance Due Date Last Done Comments [...] this topic Medical Devices Implanted Type Area Cash On Delivery Clerk Device Identifier Shelf Expiration Date Model / Serial / Lot Left Total Knee Insurance [facility] [facility] Care Teams Accountant Auditor Relationship Specialty Start Date End Date Marcelino Diaz MD PCP - General 07/13/15
[2024-12-13] MEDS: oxyCODONE HCL (*CRX) 5 MG TAB IR PO (20:20)
== END 2024-12-13 20:25 | disposition home or self-care (01) ==
LOC: ANHED 20:14
PROVIDERS: Emergency Provider Student in an Organized Health Care Education/Training Program; PCP Family Medicine
DX: M25.532 Pain in left wrist (principal); M79.632 Pain in left forearm; M79.662 Pain in left lower leg; W01.0XXA Fall on same level from slipping, tripping and stumbling without subsequent striking against object, initial encounter
CPT/HCPCS: 73090; 73110; 73590; 99284; A9270

== ENCOUNTER 2025-01-06 11:34 | Emergency (ER) | payer MEDICARE, MEDICAID, SELFPAY ==
--- NOTE | ~2025-01-06 | XR_ITS ---
Examination: XR wrist RT min 3V, XR hand RT min 3V Clinical History: trauma, FELL Comparison: Right wrist radiographs 04/17/2023 Technique: 4 views right wrist, 3 views right hand Findings/impression: Right wrist: No acute findings or significant change- 1. No fracture or dislocation noted. 2. Severe degenerative changes and joint space narrowing at distal radial ulnar joint, with subchondral cyst formation. 3. 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 4. Diffuse carpal ankylosis. Right hand: 1. No fracture or dislocation. Reviewed, dictated and finalized at location [facility]
--- NOTE | ~2025-01-06 | XR_ITS ---
XR lumbar spine 2-3V Indication: trauma, FELL Comparison: None Findings: Mild levoconvex scoliosis. Grade 1 retrolisthesis of L2 on L3 with grade 1 anterolisthesis of L4 on L5, no acute fracture. Moderate to severe loss of disc height throughout most marked at L2-3. Soft tissues unremarkable Impression: No acute abnormality. Reviewed, dictated and finalized at location P. NT EDUCATOR Impression: No acute abnormality.
--- NOTE | ~2025-01-06 | XR_ITS ---
EXAMINATION: XR knee RT 3V, 01/06/2025 12:30 SUBSTITUTE NURSE HISTORY: trauma, FELL ONTO RT KNEE COMPARISON: No comparisons available. Findings: There is a remote fracture of the proximal fibula, no acute fracture is identified Medial knee arthroplasty appears intact. Moderate degenerative changes of the patellofemoral joint. Soft tissues unremarkable. Impression: No acute fracture or malalignment. Reviewed, dictated and finalized at location P. TITUTE NURSE Impression: No acute fracture or malalignment.
[2025-01-06 11:39] VITALS: BP 157/108; PULSE 94; RESP 16; TEMP 36.3; O2SAT 98
--- NOTE | 2025-01-06 12:12 | ED.GENADULT ---
HPI - General Adult General Chief complaint: Fall Stated complaint: FALL LAST NIGHT Time Seen by Provider: 01/06/25 11:37 History of Present Illness HPI narrative: 64-year-old female presented to the emergency department who presents to the emergency department for evaluation after having a ground level fall yesterday. Patient reports she was at a local grocery store and tripped over a mat. Patient states she did re-injure her right wrist and right hand. Patient did injure her right knee and does have pain in her lower back. Patient denies striking her head and denies any loss consciousness. Patient does have prior history of surgical repair on the right wrist. Related Data Home Medications ?Medication ?Instructions ?Recorded ?Confirmed ?Last Taken ?Type amlodipine 5 mg tablet 5 mg PO DAILY 06/06/22 08/27/24 Unknown History azelastine 137 mcg (0.1 %) nasal 137 mcg intranasal Q12H 06/06/22 06/12/23 Unknown History spray baclofen 10 mg tablet 10 mg PO DAILY 06/06/22 08/27/24 Unknown History hydrochlorothiazide 12.5 mg capsule 12.5 mg PO DAILY 06/06/22 08/27/24 Unknown History hydrocodone 10 mg-acetaminophen 15 ml PO Q12H PRN 06/06/22 08/27/24 Unknown History 325 mg/15 mL (15 mL) oral solution levothyroxine 137 mcg capsule 137 mcg PO DAILY 06/06/22 08/27/24 Unknown History linaclotide 290 mcg capsule 290 mcg PO DAILY 06/06/22 08/27/24 Unknown History (Linzess) omeprazole 40 mg capsule,delayed 40 mg PO DAILY 06/06/22 08/27/24 Unknown History release potassium chloride 10 mEq 10 meq PO DAILY 06/06/22 08/27/24 Unknown History capsule,extended release Allergies Allergy/AdvReac Type Severity Reaction Status Date / Time acetaminophen (From Tylenol) Allergy Mild itching Verified 01/06/25 11:35 codeine Allergy Mild Hives / Verified 01/06/25 11:35 Red Face aspirin Allergy Unknown Rash Verified 01/06/25 11:35 Review of Systems Review of Systems: All systems reviewed & are unremarkable except as noted in HPI and below PMFSH Past Medical History Medical History Depression Graves disease High cholesterol Screening mammogram, encounter for Surgical History Surgical History H/O liposuction of abdomen (07/22/22) had open wound after Hx of LASIK History of orthopedic surgery (05/11/22) left shoulder surgery History of knee replacement (03/14/21) left knee replacement Family History Family History Father Cerebrovascular accident Mother Alzheimer disease Other Breast cancer maternal aunt Sibling Cerebrovascular accident brother Social History Social History Smoking status: Never smoker Tobacco type: cigarettes Second hand tobacco smoke exposure: No Smoking end date: 05/13/20 Alcohol intake: current Drinks per week: 2 Substance use: never Substance use type: does not use Do You Feel Safe in your Home?: Yes Lack of Transportation: No Current Housing: Decline to Answer Concerned About Future Housing: Decline to Answer Difficulty Paying Gas/Electric Bills: Decline to Answer Difficulty Paying for Meds: Decline to Answer Currently Unemployed: Decline to Answer Education: Decline to Answer Difficulty w/ Childcare or Family Care: Decline to Answer Living arrangements: other Additional living arrangements comments: single Occupation/Education: unemployed Additional occupation/education comments: disabled Gender identity (if verbalized by the patient): Female Sexual Orientation (if Verbalized by the Patient): Straight or Heterosexual Exam Narrative: APPEARANCE: Well appearing, no distress, well-nourished. HEAD: normocephalic, atraumatic. EYES: PERRLA/EOMI, conjunctivae clear. NOSE: Normal no drainage EARS:TMS clear with good light reflex. THROAT: Pharynx clear, no exudate. NECK: Supple. No adenopathy, no masses. RESPIRATORY: Airway patent, respirations nonlabored. Clear to auscultation bilaterally, no rales, rhonchi, wheezing. CARDIOVASCULAR: Regular rate and rhythm without murmurs rubs or gallops. ABDOMINAL: Soft, nontender, nondistended, normal bowel sounds MUSCULOSKELETAL: Right hand tenderness, right wrist tenderness, lumbar spine tenderness to palpation with no step-off deformity, right knee tenderness to palpation NEURO: Alert. Cranial nerves II through XII intact. Good gait. Good coordination SKIN: Warm, dry. Normal Color Course Vital Signs Vital signs: Vital Signs Temperature 97.4 F L 01/06/25 11:39 Pulse Rate 94 01/06/25 11:39 Respiratory Rate 16 01/06/25 11:39 Blood Pressure 157/108 H 01/06/25 11:39 Pulse Oximetry 98 01/06/25 11:39 Oxygen Delivery Room Air 01/06/25 11:39 Temperature 97.4 F L 01/06/25 11:39 Pulse Rate 86 01/06/25 13:24 Respiratory Rate 20 01/06/25 13:24 Blood Pressure 149/94 H 01/06/25 13:24 Pulse Oximetry 97 01/06/25 13:24 Oxygen Delivery Room Air 01/06/25 11:39 Medical Decision Making MDM Narrative Medical decision making narrative: 64-year-old female presented to the emergency department for evaluation of right wrist right hand right knee and lower back pain after having a ground level fall. Patient had negative x-rays of the wrist hand lumbar spine and knee. Patient was updated the results of the workup. Patient was advised to take [id number] medications for pain control. Patient was encouraged to have close follow-up with her primary care physician. Differential Diagnosis Differential Diagnosis: Wrist fracture, and fracture, lumbar fracture, knee fracture, knee contusion Vital Signs Vital Signs: Vital Signs Temperature 97.4 F L 01/06/25 11:39 Pulse Rate 94 01/06/25 11:39 Respiratory Rate 16 01/06/25 11:39 Blood Pressure 157/108 H 01/06/25 11:39 Pulse Oximetry 98 01/06/25 11:39 Oxygen Delivery Room Air 01/06/25 11:39 Temperature 97.4 F L 01/06/25 11:39 Pulse Rate 86 01/06/25 13:24 Respiratory Rate 20 01/06/25 13:24 Blood Pressure 149/94 H 01/06/25 13:24 Pulse Oximetry 97 01/06/25 13:24 Oxygen Delivery Room Air 01/06/25 11:39 Imaging Data Radiologist's impression: Impressions Knee X-Ray 01/06/25 12:50 Impression: No acute fracture or malalignment. Lumbar Spine X-Ray 01/06/25 12:50 Impression: No acute abnormality. Discharge Plan Discharge Clinical Impression: Hand injury, Injury of wrist, Low back pain, Acute knee pain Patient Disposition: Home Condition: Stable Instructions: Antibiotic Form Additional Instructions: Have close follow-up with your primary care physician. [id number]-[id number] medications for pain control. If you have any worsening symptoms please call or return to the emergency department. Patient Language: Chadian Prescriptions: No Action potassium chloride 10 mEq capsule, extended release 10 meq PO DAILY amlodipine 5 mg tablet 5 mg PO DAILY omeprazole 40 mg capsule,delayed release(DR/EC) 40 mg PO DAILY baclofen 10 mg tablet 10 mg PO DAILY hydrochlorothiazide 12.5 mg capsule 12.5 mg PO DAILY azelastine 137 mcg (0.1 %) aerosol,spray 137 mcg intranasal Q12H Rx Instructions: administer into each nostril levothyroxine 137 mcg capsule 137 mcg PO DAILY hydrocodone-acetaminophen 10-325 mg/15 mL(15 mL) solution 15 ml PO Q12H PRN Linzess 290 mcg capsule 290 mcg PO DAILY acyclovir 400 mg tablet 400 mg PO BID Qty: 180 3RF Follow-up/Referrals: Emily,Marcelino Cassidy MD [Primary Care Provider, Unknown]
--- OUTSIDE RECORDS SUMMARY | 2025-01-06 13:20 | XMS_ITS | Encounter Summary ---
Author Organization [facility] Address [facility] [place] [address] Care Team Providers Care Afternoon Babysitter Name Role Phone Marcelino Diaz Primary Care Provider [phone] Prince Cuellar MD Unavailable [phone] Pierce Nelson MD Unavailable [phone] Reason for Visit * Reason Onset Date Comments MEDICATION REFILL 11/01/2021 Encounter Details Date Type Department Care Team (Late st Contact Info) Description 11/01/2021 Refill [facility], Diabetes and Metabolism [address] [place] [address], [facility] [place] [phone] Prince Cuellar MD [address] [place] [address] [place] [address] MEDICATION REFILL Social History Tobacco Use Types Packs/Day Years Used Date Smoking Tobacco: Former Cigarettes 0.3 42 1 976 - 2018 Smokeless Tobacco: Never Alcohol Use Standard Drinks/Week Comments Yes 3 (1 standard drink = 0.6 oz pur e alcohol) Daily tequila Comments No Sex and Gender Information Value Date Recorded Sex Assigned at Not on file Legal Sex Female 6:00 AM WORKFORCE MANAGER Gender Identity Not on file Sexual Orientation Not on file documented as of this encounter Functional Status * Is person deaf or have serious hearing difficulty? Answer Date of Assessment Author No 02/17/2020 10:59 AM WORKFORCE MANAGER Thomas Thapa RN * Is person blind or have [...] Thomas Aaron RN documented in this encounter Plan of Treatment Upcoming Encounters Date Type Department Care Team (Late st Contact Info) Description 01/13/2025 10:30 AM WORKFORCE MANAGER Office Visit [facility] - Ophthalmology [address] [place] [address], [place] [address] Aamir Salguero MD [address] [place] [phone] 06/11/2025 11:00 AM CDT Office Visit [facility] GI [address] [place] [phone] 11/04/2025 10:00 AM CDT Office Visit [facility] - Orthopedic Surgery [address] [place] [phone] Ralph Walker MD [address] [place] [phone] documented as of this encounter Goals Goal Patient Goal Type Associated Problems Recent Progress Patient-Stated? Author Mobility General Improving(05/14 11:00 AM CDT) No Ela Smalls, KAITLIN Note: Expected end date: 02/12/2020 The goal is to maintain or improve your mobility at the optimum level for you. Interventions: documented as of this encounter Visit Diagnoses Not on filedocumented in this encounter Care Teams Afternoon Babysitter Relationship Specialty Start Date End Date Marcelino Diaz [address] [place] [phone] PCP - General 03/08/18 Prince Cuellar MD [address] [address] Physician Endocrinology 07/11/18 Pierce Nelson MD [address] [place] [address] Otolaryngology 07/11/18 documented as of this encounter
--- OUTSIDE RECORDS SUMMARY | 2025-01-06 13:21 | XMS_ITS | Clinical Summary ---
Author Organization [facility] Address [address] [place] [address] Care Team Providers Care Broker Agricultural Produce Name Role Phone Marcelino Diaz MD Primary Care Provider Allergies Active Allergy Reactions Criticality Noted Date Comments Codeine Itching 12/20/2020 Methocarbamol Hallucinations 12/20/2020 Medications levothyroxine 125 MCG tablet Take 1 tablet by mouth daily. Active HYDROcodone-chelsae taminophen 10-325 MG tablet Take 1 tablet [...] Comments Blood Pressure 176/115 12/20/2020 5:10 PM BROKER AGRICULTURAL PRODUCE Pulse 94 12/20/2020 5:10 PM BROKER AGRICULTURAL PRODUCE Temperature 37.1 C (98.7 F) 12/20/2020 4:56 PM BROKER AGRICULTURAL PRODUCE Respiratory Rate 19 12/20/2020 5:10 PM BROKER AGRICULTURAL PRODUCE Oxygen Saturation 98% 12/20/2020 5:10 PM BROKER AGRICULTURAL PRODUCE Inhaled Oxygen Concentration - - Weight 83.9 kg (185 lb) 12/20/2020 2:26 PM BROKER AGRICULTURAL PRODUCE Height 157.5 cm (5' 2) 12/20/2020 2:26 PM BROKER AGRICULTURAL PRODUCE Body Mass Index 33.84 12/20/2020 2:26 PM BROKER AGRICULTURAL PRODUCE Plan of Treatment Upcoming Encounters Date Type Department Care Team (Late st Contact Info) Description 05/19/2025 10:00 AM CDT Office Visit [facility]pecialty Care - [facility] [address] [place] [address] Fili Jarrell DO [address] [facility] [place] [address] Health Maintenance Due Date Last Done Comments [...] this topic Medical Devices Implanted Type Area Sales And Marketing Specialist Device Identifier Shelf Expiration Date Model / Serial / Lot Left Total Knee Insurance [facility] [facility] Care Teams Broker Agricultural Produce Relationship Specialty Start Date End Date Marcelino Diaz MD PCP - General 07/13/15
--- OUTSIDE RECORDS SUMMARY | 2025-01-06 13:21 | XMS_ITS | Encounter Summary ---
Author Organization [facility] Address [address] [place] [address] Care Team Providers Care Diploma Pharmacy Technician Name Role Phone Marcelino Diaz Primary Care Provider [phone] Prince Cuellar MD Unavailable [phone] Pierce Nelson MD Unavailable [phone] Reason for Visit * Reason Onset Date Comments Nurse Only 12/14/2022 Encounter Details Date Type Department Care Team (Late st Contact Info) Description 12/14/2022 Telephone [facility] - Centralized Scheduling [address] [place] [address] Marco Antonio Diamond MD [address] [place] [address] Nurse Only Social History Tobacco [...] on file Legal Sex Female 6:00 AM OFFICE ASSISTANT Gender Identity Not on file Sexual Orientation [...] st Contact Info) Description 01/13/2025 10:30 AM OFFICE ASSISTANT Office Visit [facility] - Ophthalmology [address] [place] [phone] Aamir Salguero MD [address] [place] [phone] 06/11/2025 11:00 AM CDT Office Visit [facility] - GI [address] [place] [phone] 11/04/2025 10:00 AM CDT Office Visit [facility] - Orthopedic Surgery [address] [place] [phone] Ralph Walker MD 10[address] [facility] [address] [place] [address] documented as of this encounter Goals Goal Patient Goal Type Associated Problems Recent Progress Patient-Stated? Author Mobility General Improving(05/14 11:00 AM CDT) No Ela Smalls, RN Note: Expected end date: 02/12/2020 The goal is to maintain or improve your mobility at the optimum level for you. Interventions: documented as of this encounter Visit Diagnoses Not on filedocumented in this encounter Care Teams Diploma Pharmacy Technician Relationship Specialty Start Date End Date Marcelino Diaz [address] [place] [phone] PCP - General 03/08/18 Prince Cuellar MD Critical access hospital0 [facility] [address] [place] [address] Physician Endocrinology 07/11/18 Pierce Nelson MD [address] [facility] [address] [place] [address] Otolaryngology 07/11/18 documented as of this encounter
--- OUTSIDE RECORDS SUMMARY | 2025-01-06 13:21 | XMS_ITS | Encounter Summary ---
Author Organization [facility] Address [address] [facility] [address] Care Team Providers Care Medical Affairs Specialist Name Role Phone Marcelino Diaz Primary Care Provider [phone] Prince Cuellar MD Unavailable [phone] Pierce Nelson MD Unavailable [phone] Encounter Details Date Type Department Care Team (Late st Contact Info) Description 12/15/2021 Telephone [facility] [address] [place] [phone] Gerry Vaz MD [address] [place] [address] [place] [phone] Social History Tobacco Use Types Packs/Day Years Used Date Smoking Tobacco: Former Cigarettes 0.3 42 1 976 - 2018 Smokeless Tobacco: Never Alcohol Use Standard Drinks/Week Comments Yes 3 (1 standard drink = 0.6 oz pur e alcohol) Daily tequila Comments No Sex and Gender Information Value Date Recorded Sex Assigned at Not on file Legal Sex Female 6:00 AM COLLEGE ATHLETE Gender Identity Not on file Sexual Orientation [...] a appt as soon as possible. Call [phone] documented in this encounter Plan of Treatment Upcoming Encounters Date Type Department Care Team (Late st Contact Info) Description 01/13/2025 10:30 AM COLLEGE ATHLETE Office Visit [facility] - Ophthalmology [address] [place] [phone] Aamir Salguero MD [address] [place] [phone] 06/11/2025 11:00 AM CDT Office Visit [facility] - GI [address] [place] [phone] 11/04/2025 10:00 AM CDT Office Visit [facility] - Orthopedic Surgery [address] [place] [phone] Ralph Walker MD [address] [place] [address] [address] [place] [address] documented as of this encounter Goals Goal Patient Goal Type Associated Problems Recent Progress Patient-Stated? Author Mobility General Improving(05/14 11:00 AM CDT) No Ela Smalls, RN Note: Expected end date: 02/12/2020 The goal is to maintain or improve your mobility at the optimum level for you. Interventions: documented as of this encounter Visit Diagnoses Not on filedocumented in this encounter Care Teams Medical Affairs Specialist Relationship Specialty Start Date End Date Marcelino Diaz [address] [place] [phone] PCP - General 03/08/18 Prince Cuellar MD [address] [facility] [address] [place] [address] Physician Endocrinology 07/11/18 Pierce Nelson MD [address] [place] [address] Otolaryngology 07/11/18 documented as of this encounter
--- OUTSIDE RECORDS SUMMARY | 2025-01-06 13:21 | XMS_ITS | Encounter Summary ---
Author Organization [facility] Address [facility] [place] [address] Care Team Providers Care Equipment Maintenance Supervisor Name Role Phone Marcelino Diaz Primary Care Provider [phone] Prince Cuellar MD Unavailable [phone] Pierce Nelson MD Unavailable [phone] Reason for Visit * Reason Onset Date Comments MEDICATION REFILL 03/11/2022 Encounter Details Date Type Department Care Team (Late st Contact Info) Description 03/11/2022 Refill [facility] Endocrinology, Diabetes and Metabolism [address] [place] [address], [facility] [place] [address] Prince Cuellar MD [address] [place] [address] [place] [address] MEDICATION REFILL Social History Tobacco Use Types [...] on file Legal Sex Female 6:00 AM BELT SEWER Gender Identity Not on file Sexual Orientation [...] tablet 4 Sig: May cause drowsiness. 01/17 SEWER documented in this encounter Plan of Treatment Upcoming Encounters Date Type Department Care Team (Late st Contact Info) Description 01/13/2025 10:30 AM BELT SEWER Office Visit [facility] - Ophthalmology [address] [place] [phone] Aamir Salguero MD [address] [place] [address] 06/11/2025 11:00 AM CDT Office Visit [facility] GI [address] [facility], [place] [address] 11/04/2025 10:00 AM CDT Office Visit [facility] Group - Orthopedic Surgery [address] [facility] [place] [phone] Ralph Walker MD 1031 [facility] 280 [place] [address] documented as of this encounter Goals Goal Patient Goal Type Associated Problems Recent Progress Patient-Stated? Author Mobility General Improving(05/14 11:00 AM CDT) No Ela Smalls, RN Note: Expected end date: 02/12/2020 The goal is to maintain or improve your mobility at the optimum level for you. Interventions: documented as of this encounter Visit Diagnoses Not on filedocumented in this encounter Care Teams Equipment Maintenance Supervisor Relationship Specialty Start Date End Date Marcelino Diaz [address] [place] [phone] PCP - General 03/08/18 Prince Cuellar MD [address] [place] [address] Physician Endocrinology 07/11/18 Pierce Nelson MD [address] [place] [address] Otolaryngology 07/11/18 documented as of this encounter
--- OUTSIDE RECORDS SUMMARY | 2025-01-06 13:21 | XMS_ITS | Clinical Summary ---
Author Organization [facility] Address [address] [facility] [address] [place] [address] Care Team Providers Care Regional Extension Service Specialist Name Role Phone Marcelino Diaz Primary Care Provider [phone] Prince Cuellar MD Unavailable [phone] Pierce Nelson MD Unavailable [phone] Source Comments [facility],non-owned Affiliates and Associated Physician Practices is amultiple site organization consisting of ambulatory clinics and hospital sitesin [place], [place], [place] and [place]. This disclosure is being madepursuant to the Care Everywhere program and may not contain all information available regarding this patient. Last updated 17.[facility] Allergies Active Allergy Reactions Criticality Noted Date Comments Aspirin Nausea and/or Vomiting,Rash Medium 11/13/2018 Codeine Itching,Urticaria Medium 05/30/2018 Generalized itching. Duloxetine Psychiatric Medium [...] fluticasone propionate (FLONASE) 50 MCG/ACT nasal spray [place] 1 (one) spray into each nostril once daily 01/24/20 19 Active atorvastatin (LIPITOR) 40 MG tablet Take 1 (one) tablet by mouth at bedtime 05/05/19 21 Active phentermine (ADIPEX-P) 37.5 MG tablet Take 1 (one) tablet by mouth daily before breakfast Active hydroCHLOROthiaz harsha (Hydrodiuril) 25 MG tablet Take 1 (one) tablet by mouth once daily 04/28/19 23 Active levothyroxine (Synthroid) 137 MCG tabletIndication s:Hypothyroidism Take 1 (one) tablet by mouth daily before breakfast Reasons: Underactive Thyroid 90 tablet 3 05/15/19 24 Active sertraline (Zoloft) 100 MG tablet Take 1 (one) tablet by mouth once daily 09/18/19 24 Active HYDROcodone-acet aminophen ([place]) 7.5-325 MG tabletIndication s:Carpal tunnel syndrome of left wrist Take 1 (one) tablet by mouth every 6 hours as needed for Pain 28 tablet 11/20/19 24 Active celecoxib (CeleBREX) 200 MG capsuleIndicatio [...] supper 60 capsule 6 12/12/19 25 Active buPROPion SR 12hr (Wellbutrin-SR) 150 MG tablet 12/19/19 25 Active mirtazapine (Remeron) 7.5 MG tablet 10/30/19 25 Active LINZESS 290 MCG capsule Take 1,000 (one thousand) capsules by mouth once daily as needed 05/09/19 19 025 Discontin ued(Reord er) Azelastine HCl 137 MCG/SPRAY SOLN [place] 2 sprays into each nostril 2 times daily 12/27/19 22 025 Discontin ued(List Clean-Up) pantoprazole EC (Protonix) 40 MG tablet Take 1 (one) tablet by mouth 2 times daily 05/03/19 Discontin ued(Clini leonidas Decision) methylPREDNISolo ne (Medrol Dosepak) 4 MG tablet Take by mouth as directed 1 Each 09/19/19 24 Discontin ued(List Clean-Up) meloxicam (Mobic) 15 MG tablet Take 1 (one) tablet by mouth once daily 30 tablet 3 09/19/19 24 Discontin ued(List Clean-Up) cyclobenzaprine (Flexeril) 5 MG tablet 11/07/19 24 Discontin ued(List Clean-Up) acetaminophen (Tylenol) 500 MG tablet Take 1 (one) tablet by mouth 3 times daily Maximum allowable Acetaminophen amount = 4 Grams (4000 mg) / 24 hours. 11/20/19 24 Discontin ued(List Clean-Up) docusate sodium (Colace) 100 MG capsule Take 1 (one) capsule by mouth once daily as needed for Constipation 21 capsule 11/20/19 24 Discontin ued(List Clean-Up) oxyCODONE, immediate release, (Roxicodone) 5 MG tabletIndication s:Carpal tunnel syndrome of left wrist Take 0.5 (one-half) tablet by mouth every 8 hours as needed for Pain 8 tablet 11/20/19 24 025 Discontin ued(List Clean-Up) active leptospermum honey (Xtreme Installshoney) GEL gel Apply to affected area once daily 15 mL 1 12/14/19 24 Discontin ued(List Clean-Up) Active Problems Problem Noted [...] AM Before coming to our department in 2019, the patient was followed elsewhere including [facility] with a working diagnosis of open-angle [...] testing since coming to our department in 2019. Marco Antonio Diamond MD 02/28/2022 3:40 PM [...] Encounters Date Type Department Care Team Description 12/30/2024 Travel 12/17/2024 Telephone [facility] - Ophthalmology [address] [facility], [place] [phone] Rahul Teran MD Eye Problem 12/12/2024 Refill [facility] [address] [place] [phone] Annalisa Corado PA-C MEDICATION REFILL 12/11/2024 10:00 AM CDT Office Visit [facility] [address] [place] [phone] Sg Leroy MD Gastroesophageal reflux disease without esophagitis (Primary Dx); Chronic constipation 12/11/2024 Travel 12/10/2024 Travel 11/30/2024 Refill [facility] - Orthopedics [address] [place] [phone] Marc Hickman, JUSTICE COURT DEPUTY CLERK-EDITOR & CO FOUNDER Refill Request 11/25/2024 2:50 PM CDT Clinical Support [facility] - Ophthalmology [address] [place] [phone] Gerry Vaz MD Primary open angle glaucoma (POAG) of left eye, moderate stage (Primary Dx) 11/25/2024 2:00 PM CDT Office Visit [facility] - Ophthalmology [address] [place] [phone] Gerry Vaz MD Nuclear sclerotic cataract of both eyes (Primary Dx); Primary open angle glaucoma (POAG) of left eye, moderate stage 11/25/2024 Travel 10/29/2024 10:30 AM CDT Office Visit [facility] - Orthopedic Surgery [address] [place] [phone] Ralph Walker MD History of total left knee replacement (Primary Dx) 10/29/2024 9:53 AM CDT - 10/29/2024 11:59 PM CDT Hospital Encounter [facility] - Orthopedics [address] [place] [address], [address] [place] [address] Ralph Walker MD Discharge Disposition: Home or Self Care 10/29/2024 Travel from Last 3 Months Immunizations Immunization [...] Smoking Tobacco: Former Cigarettes 0.3 42 1 2017 Smokeless Tobacco: Current Tobacco Cessation:Ready to [...] on file Legal Sex Female 6:00 AM TECHNICAL SYSTEM ANALYST Gender Identity Not on file Sexual [...] st Contact Info) Description 01/13/2025 10:30 AM TECHNICAL SYSTEM ANALYST Office Visit [facility] - Ophthalmology [address] [place] [phone] Aamir Salguero MD [address] [place] [phone] 06/11/2025 11:00 AM CDT Office Visit [facility] - [facility] [address] [place] [phone] 11/04/2025 10:00 AM CDT Office Visit [facility] [address] [facility] [place] [phone] Ralph Walker MD 1031 [facility] [address] [place] [address] Health Maintenance Due Date Last Done Comments [...] MEDICARE AWV CALENDAR YEAR 2024 COVID-19 VACCINE ( season) 2024 11/24/2020, 05/23/2020, 04/29/2020 INFLUENZA VACCINE [...] last dose Medical Devices Implanted Type Area Mounter Sousaphones Device Identifier Shelf Expiration Date Model / Serial / Lot Wire K .045in 6in 2 Troc Pnt Smth Ss Fx Implanted:Qty: 1 on 03/10/2019 by Hay Little MD at [facility] Right: Hand [employer] 11/07/2022 [id number] / / [id number] Shannan Swivelock Suture [place] Eyelet Implanted:Qty: 1 on 02/17/2020 at [facility] Right: Hand [employer] 09/11/2024 [id number] / / [id number] Cemented Stem Implanted:Qty: 1 on 03/14/2021 by Ralph Walker MD at [facility] Left: Knee [employer] 10/24/2029 [id number] / / [id number] Ins Tib 3-4 15mm Kn Xlpe Dsh Legion Implanted:Qty: 1 on 03/14/2021 by Ralph Walker MD at [facility] Left: Knee [employer] 01/06/2028 [id number] / / [id number] Cmnt Bone Rally 40gm Hvisc Sprmnt Grn Implanted:Qty: 3 on 03/14/2021 by Ralph Walker MD at [facility] Left: Knee [employer] 08/11/2025 [id number] / / [id number] Total Hip Bone Preparation Kit Implanted:Qty: 1 on 03/14/2021 by Ralph Walker MD at [facility] Left: Knee [employer] 12/24/2030 [id number] / / [id number] Description:Cement Restricto rs Screw Bsplt 20mm 6.5mm Gns2 Kn Tib Por Implanted:Qty: 1 on 03/14/2021 by Ralph Walker MD at [facility] Left: Knee [employer] 10/12/2030 [id number] / / [id number] Revision Tibial Baseplate Implanted:Qty: 1 on 03/14/2021 by Ralph Walker MD at [facility] Left: Knee [employer] 05/30/2030 [id number] / / [id number] Screw On Full Stepped Tibial Wedge Implanted:Qty: 1 on 03/14/2021 by Ralph Walker MD at [facility] Left: Knee [employer] 07/27/2029 [id number] / / [id number] [place] Sut Healix Adv 5.5mm Bcmps Slf Implanted:Qty: 1 on 05/11/2022 by Deny Miranda MD at [facility] Left: Shoulder [employer] 10/12/2024 [id number] / / [id number] [place] Sut Healix Adv 5.5mm Bcmps Slf - S0 Implanted:Qty: 1 on 05/11/2022 by Deny Miranda MD at [facility] Left: Shoulder [employer] 08/11/2024 [id number] / 0 / [id number] Explanted Type Area Mounter Sousaphones Device Identifier Shelf Expiration Date Model / Serial / Lot Wire K .045in 6in 2 Troc Pnt [facility] Ss Fx Explanted:Qty: 2 on 03/10/2019 by Hay Little MD at [facility] Right: Hand [employer] 11/07/2022 [id number] / / [id number] Stpl Bone 14mmx1.7-1.5mm 4fusion Implanted:Qty: 1 on 03/10/2019 by Hay Little MD at [facility] Explanted:Qty: 1 on 02/17/2020 at [facility] Right: Hand [employer] 12/13/2021 [id number] / / [id number] Procedures Procedure Name Priority Date/Time Associated Diagnosis Comments OPTIC NERVE ANALYSIS OCT Routine 11/25/2024 2:50 PM CDT Primary open angle glaucoma (POAG) of left eye, moderate stage XR KNEE LEFT 4VW OR MORE Routine 10/29/2024 9:58 AM CDT Left knee pain, unspecified chronicity COMPREHENSIVE METABOLIC PANEL Pre-Op 03/03/2021 10:05 AM TECHNICAL SYSTEM ANALYST Pre-op testing from Last 3 Months or [...] OS). us Gerry Vaz MD OPHTHALMOLOGY SCHED ORD W PAC S Final Result * XR Knee Left 4Vw [...] Efra Bautista MD on 10/29/2024 11:11 AM Ralph Walker MD DIAGNOSTIC IMAGING ORDERABL ES Final Result * (ABNORMAL) COMPREHENSIVE METABOLIC PANEL (03/03/2021 10:05 AM [facility]) Glucose 94 70 - 105 mg/dL 03/03/2021 10:[address] [facility] Sodium 140 136 - 145 mmol/L 03/03/2021 10:[address] [facility] Potassium 3.9 3.5 - 5.1 mmol/L 03/03/2021 10:[address] [facility] Chloride 106 98 - 107 mmol/L 03/03/2021 10:[address] [facility] CO2 26 23 - 31 mmol/L 03/03/2021 10:[address] [facility] Calcium 9.1 8.4 - 10.4 mg/dL 03/03/2021 10:[address] [facility] Anion Gap 8 8 - 18 mmol/L 03/03/2021 10:[address] [facility] BUN 13 9.8 - 20.1 mg/dL 03/03/2021 10:[address] [facility] Creatinine 0.70 0.57 - 1.11 mg/dL 03/03/2021 10:[address] [facility] Alkaline Phosphatase 84 40 - 150 U/L 03/03/2021 10:[address] [facility] ALT 27 0 - 61 U/L 03/03/2021 10:[address] [facility] AST 40(H) 5 - 34 U/L 03/03/2021 10:[address] [facility] Protein Total 7.2 6.4 - 8.3 gm/dL 03/03/2021 10:[address] [facility] Albumin 4.2 3.2 - 4.6 gm/dL 03/03/2021 10:[address] [facility] Bilirubin Total 0.4 0.2 - 1.2 mg/dL 03/03/2021 10:[address] [facility] eGFR by MDRD >60 >60 mL/min/1.7 3m2 03/03/2021 10:[address] [facility] eGFR by MDRD >60 >60 mL/min/1.7 3m2 03/03/2021 10:56 AM TECHNICAL SYSTEM ANALYST [facility] Blood BLOOD SPECIMEN / Unknown Venipuncture / Unknown 03/03/2021 10:05 AM TECHNICAL SYSTEM ANALYST 03/03/2021 10:18 AM TECHNICAL SYSTEM ANALYST Ralph Walker MD LAB - CHEMISTRY ORDERABLES Final Result Performing Organization Address City/State/[facility] Co de Phone Number [facility] [address] [place] [address] from Last 3 Months or Most Recently Relevant to Health Maintenance Insurance [facility] MANAGED MEDICARE ADV MEDICAID - [place] Advance Directives * Full Code (Latest Code Status on File) Date Activated Date Inactivated Comments 03/14/2021 12:36 PM 03/18/2021 5:09 PM * Full Code Date Activated Date Inactivated Comments 06/27/2019 4:05 PM 06/30/2019 1:06 PM * Full Code Date Activated Date Inactivated Comments 03/12/2019 4:00 PM 03/14/2019 12:15 PM Care Teams Regional Extension Service Specialist Relationship Specialty Start Date End Date Marcelino Diaz [address] [place] [phone] PCP - General 03/08/18 Prince Cuellar MD [address] [place] [address] Physician Endocrinology 07/11/18 Pierce Nelson MD [address] [place] [address] Otolaryngology 07/11/18
--- OUTSIDE RECORDS SUMMARY | 2025-01-06 13:21 | XMS_ITS | Clinical Summary ---
Author Organization [facility] Address [address] [place] [address] Care Team Providers Care Business Representative Name Role Phone Marcelino Diaz MD Primary Care Provider [phone] Allergies Active Allergy Reactions Criticality Noted Date [...] by mouth daily. 2 05/26/19 18 Active [facility] dexlansoprazole () 30 mg capsuleIndications: Research study [...] Route Frequency Start Date End Date Status [facility] dexlansoprazole () capsuleIndications:Re search study patient oral [...] on file Legal Sex Female 2:17 AM FISCAL MANAGER Gender Identity Female 12/28/2017 8:57 AM FISCAL MANAGER Sexual Orientation Not on file Last Filed Vital Signs Vital Sign Reading Time Taken Comments Blood Pressure 149/92 03/28/2018 11:32 AM FISCAL MANAGER Pulse 62 12/28/2017 9:02 AM FISCAL MANAGER Temperature 36.6 C (97.8 F) 12/28/2017 9:02 AM FISCAL MANAGER Respiratory Rate 20 08/08/2017 4:02 PM CDT Oxygen Saturation 98% 08/08/2017 4:02 PM CDT Inhaled Oxygen Concentration - - Weight 80.3 kg (177 lb) 03/28/2018 11:32 AM FISCAL MANAGER Height 157.5 cm (5' 2) 03/28/2018 11:32 AM FISCAL MANAGER Body Mass Index 32.37 03/28/2018 11:32 AM FISCAL MANAGER Plan of Treatment Health Maintenance Due Date [...] exists Pneumococcal vaccine 65+ Completed 06/06/2022 Insurance [facility] [place] [address] IDPA [facility] MEDICAID [facility] MEDICARE ADVANTAGE IDPA Advance Directives For more information, please contact: [phone] * Full Code (Latest Code Status on File) Date Activated Date Inactivated Comments 08/08/2017 2:23 PM 08/08/2017 6:30 PM Care Teams Business Representative Relationship Specialty Start Date End Date Marcelino Diaz MD [address] [place] [id number] PCP - General 05/09/16
--- OUTSIDE RECORDS SUMMARY | 2025-01-06 13:21 | XMS_ITS | Encounter Summary ---
Author Organization [facility] Address [address] [place] [address] Care Team Providers Care Tag Maker Name Role Phone Marcelino Diaz MD Primary Care Provider Encounter Details Date Type Department Care Team (Latest Contact Info) Description 12/18/2017 Abstract [facility] Donovan Wilson MD Social [...] Description 05/19/2025 10:00 AM CDT Office Visit [facility] Multispecialty Care - [facility] [address] [place] [address] Fili Jarrell DO [address] [place] [address] documented as of this encounter Visit Diagnoses Not on filedocumented in this encounter Care Teams Tag Maker Relationship Specialty Start Date End Date Marcelino Diaz MD PCP - General 07/13/15 documented as of this encounter
[2025-01-06 13:24] VITALS: BP 149/94; PULSE 86; RESP 20; O2SAT 97
== END 2025-01-06 13:25 | disposition home or self-care (01) ==
PROVIDERS: Emergency Provider Emergency Medicine; PCP Family Medicine
DX: S09.90XA Unspecified injury of head, initial encounter (principal); S69.91XA Unspecified injury of right wrist, hand and finger(s), initial encounter; M54.50 Low back pain, unspecified; M25.561 Pain in right knee; F32.A Depression, unspecified; E05.00 Thyrotoxicosis with diffuse goiter without thyrotoxic crisis or storm; E78.5 Hyperlipidemia, unspecified; W01.0XXA Fall on same level from slipping, tripping and stumbling without subsequent striking against object, initial encounter
CPT/HCPCS: 72100; 73110; 73130; 73562; 99284

== ENCOUNTER 2025-01-26 14:56 | Outpatient (CLI) | payer MEDICARE, MEDICAID, SELFPAY ==
--- NOTE | ~2025-01-26 | MM_ITS ---
EXAMINATION: MM screening ryan BI w argelia HISTORY: Screening TECHNIQUE: Craniocaudal and mediolateral oblique 3-D tomosynthesis images were obtained and synthetic 2-D images were generated. CAD analysis was submitted and interpreted. COMPARISON: Comparison to multiple prior studies sequentially, with oldest reviewed study dated , 12/27/2015 BREAST PARENCHYMAL COMPOSITION: Dense: The breasts are heterogeneously dense, which may obscure small masses. FINDINGS: There is no evidence of suspicious mass, calcification, or architectural distortion to suggest malignancy in either breast. IMPRESSION: 1. No mammographic evidence of malignancy. 2. Recommend routine screening mammography in one year. BI-RADS Category 1: Negative Reviewed, dictated and finalized at location A. INJECTOR AND APPLICATOR
--- OUTSIDE RECORDS SUMMARY | 2025-01-26 17:18 | XMS_ITS | Encounter Summary ---
Author Organization [facility] Address [address] [facility] [place] [address] Care Team Providers Care Beer Brewer Name Role Phone Marcelino Diaz Primary Care Provider Prince Cuellar MD Unavailable Pierce Nelson MD Unavailable [phone] Encounter Details Date Type Department Care Team (Late st Contact Info) Description 12/15/2021 Telephone [facility] [address] [place] [phone] Gerry Vaz MD [address] [place] [address] [place] [phone] Social History Tobacco Use Types Packs/Day Years Used Date Smoking Tobacco: Former Cigarettes 0.3 42 1 976 - 2018 Smokeless Tobacco: Never Alcohol Use Standard Drinks/Week Comments Yes 3 (1 standard drink = 0.6 oz pur e alcohol) Daily tequila Comments No Sex and Gender Information Value Date Recorded Sex Assigned at Not on file Legal Sex Female 6:00 AM SAP BW CONSULTANT Gender Identity Not on file Sexual Orientation [...] a appt as soon as possible. Call [phone] documented in this encounter Plan of Treatment Upcoming Encounters Date Type Department Care Team (Late st Contact Info) Description 01/27/2025 10:30 AM SAP BW CONSULTANT Office Visit [facility] - Ophthalmology [address] [place] [phone] Aamir Salguero MD [address] [place] [phone] 06/11/2025 11:00 AM CDT Office Visit [facility] - GI [address] [place] [phone] 11/04/2025 10:00 AM CDT Office Visit [facility] Orthopedic Surgery [address] [place] [phone] Ralph Walker MD [address] [place] [address] [address] [place] [address] documented as of this encounter Goals Goal Patient Goal Type Associated Problems Recent Progress Patient-Stated? Author Mobility General Improving(05/14 11:00 AM CDT) No Ela Smalls, RN Note: Expected end date: 02/12/2020 The goal is to maintain or improve your mobility at the optimum level for you. Interventions: documented as of this encounter Visit Diagnoses Not on filedocumented in this encounter Care Teams Beer Brewer Relationship Specialty Start Date End Date Marcelino Diaz [address] [place] [phone] PCP - General 03/08/18 Prince Cuellar MD [address] [facility] [address] [place] [address] Physician Endocrinology 07/11/18 Pierce Nelson MD [address] [place] [address] Otolaryngology 07/11/18 documented as of this encounter
--- OUTSIDE RECORDS SUMMARY | 2025-01-26 17:18 | XMS_ITS | Encounter Summary ---
Author Organization [facility] Address [facility] [place] [address] Care Team Providers Care Computed Tomography Technician Name Role Phone Marcelino Diaz Primary Care Provider [phone] Prince Cuellar MD Unavailable [phone] Pierce Nelson MD Unavailable [phone] Reason for Visit * Reason Onset Date Comments MEDICATION REFILL 11/01/2021 Encounter Details Date Type Department Care Team (Late st Contact Info) Description 11/01/2021 Refill [facility], Diabetes and Metabolism [address] [place] [address], [facility] [place] [phone] Prince Cuellar MD [address] [place] [address] [place] [address] MEDICATION REFILL Social History Tobacco Use Types Packs/Day Years Used Date Smoking Tobacco: Former Cigarettes 0.3 42 1 976 - 2018 Smokeless Tobacco: Never Alcohol Use Standard Drinks/Week Comments Yes 3 (1 standard drink = 0.6 oz pur e alcohol) Daily tequila Comments No Sex and Gender Information Value Date Recorded Sex Assigned at Not on file Legal Sex Female 6:00 AM MOTION PICTURE DIRECTOR Gender Identity Not on file Sexual Orientation Not on file documented as of this encounter Functional Status * Is person deaf or have serious hearing difficulty? Answer Date of Assessment Author No 02/17/2020 10:59 AM MOTION PICTURE DIRECTOR Thomas Thapa RN * Is person blind [...] st Contact Info) Description 01/27/2025 10:30 AM MOTION PICTURE DIRECTOR Office Visit [facility] - Ophthalmology [address] [place] [address], [place] [address] Aamir Salguero MD [address] [place] [phone] 06/11/2025 11:00 AM CDT Office Visit [facility] GI [address] [place] [phone] 11/04/2025 10:00 AM CDT Office Visit [facility] - Orthopedic Surgery [address] [place] [phone] Ralph Walker MD [address] [place] [address] documented as of this encounter Goals Goal Patient Goal Type Associated Problems Recent Progress Patient-Stated? Author Mobility General Improving(05/14 11:00 AM CDT) No Ela Smalls, KAITLIN Note: Expected end date: 02/12/2020 The goal is to maintain or improve your mobility at the optimum level for you. Interventions: documented as of this encounter Visit Diagnoses Not on filedocumented in this encounter Care Teams Computed Tomography Technician Relationship Specialty Start Date End Date Marcelino Diaz [address] [place] [phone] PCP - General 03/08/18 Prince Cuellar MD [address] [address] Physician Endocrinology 07/11/18 Pierce Nelson MD [address] [place] [address] Otolaryngology 07/11/18 documented as of this encounter
--- OUTSIDE RECORDS SUMMARY | 2025-01-26 17:18 | XMS_ITS | Clinical Summary ---
Author Organization [facility] Address [address] [place] [address] Care Team Providers Care Account Services Coordinator Name Role Phone Marcelino Diaz MD Primary Care Provider [phone] Allergies Active Allergy Reactions Criticality Noted Date [...] Comments Blood Pressure 176/115 12/20/2020 5:10 PM PAD MAKING MACHINE OPERATOR Pulse 94 12/20/2020 5:10 PM PAD MAKING MACHINE OPERATOR Temperature 37.1 C (98.7 F) 12/20/2020 4:56 PM PAD MAKING MACHINE OPERATOR Respiratory Rate 19 12/20/2020 5:10 PM PAD MAKING MACHINE OPERATOR Oxygen Saturation 98% 12/20/2020 5:10 PM PAD MAKING MACHINE OPERATOR Inhaled Oxygen Concentration - - Weight 83.9 kg (185 lb) 12/20/2020 2:26 PM PAD MAKING MACHINE OPERATOR Height 157.5 cm (5' 2) 12/20/2020 2:26 PM PAD MAKING MACHINE OPERATOR Body Mass Index 33.84 12/20/2020 2:26 PM PAD MAKING MACHINE OPERATOR Plan of Treatment Upcoming Encounters Date Type Department Care Team (Late st Contact Info) Description 05/19/2025 10:00 AM CDT Office Visit [facility] Mult[facility]pecialty Care - [facility] [address] [place] [address] Fili Jarrell DO [address] [facility] [place] [address] Health Maintenance Due Date Last Done Comments [...] this topic Medical Devices Implanted Type Area Water Truck Driver Device Identifier Shelf Expiration Date Model / Serial / Lot Left Total Knee Insurance [facility] Care Teams Account Services Coordinator Relationship Specialty Start Date End Date Marcelino Diaz MD PCP - General 07/13/15
--- OUTSIDE RECORDS SUMMARY | 2025-01-26 17:18 | XMS_ITS | Clinical Summary ---
Author Organization [facility] [employer] Address [address] [place] [address] Care Team Providers Care Sales Agent Insurance Name Role Phone Marcelino Diaz Primary Care Provider [phone] Prince Cuellar MD Unavailable [phone] Pierce Nelson MD Unavailable [phone] Source Comments [facility],non-owned Affiliates and Associated Physician Practices is amultiple site organization consisting of ambulatory clinics and hospital sitesin [place], [place], [place] and [place]. This disclosure is being madepursuant to the Care Everywhere program and may not contain all information available regarding this patient. Last updated 17.[facility] Allergies Active Allergy Reactions Criticality Noted Date [...] fluticasone propionate (FLONASE) 50 MCG/ACT nasal spray Palermo 1 (one) spray into each nostril once [...] once daily 09/18/19 24 Active HYDROcodone-acet aminophen (Encino) 7.5-325 MG tabletIndication s:Carpal tunnel syndrome of [...] (Remeron) 7.5 MG tablet 10/30/19 25 Active Azelastine HCl 137 MCG/SPRAY SOLN Palermo 2 sprays into each nostril 2 times daily 12/27/19 22 025 Discontin ued(List Clean-Up) active leptospermum honey (Zannel) GEL gel Apply to affected area once daily 15 mL 1 12/14/19 24 025 Discontin ued(List Clean-Up) Active Problems [...] 2018, the patient was followed elsewhere including Research [...] 12/17/2024 Telephone [facility] [address] [place] [address] Rahul Teran MD Eye Problem 12/12/2024 Refill [facility] GI [address], [address] [place] [address] Annalisa Corado PA-C MEDICATION REFILL 12/11/2024 10:00 AM CDT Office Visit [facility] [address] [place] [phone] Sg Leroy MD Gastroesophageal reflux disease without esophagitis (Primary Dx); Chronic constipation 12/11/2024 Travel 12/10/2024 Travel 11/30/2024 Refill [facility] - Orthopedics [address] [place] [phone] Marc Hickman, JET-PROPERTY MANAGEMENT SUPERVISOR Refill Request 11/25/2024 2:50 PM CDT Clinical Support [facility] - Ophthalmology [address] [place] [phone] Gerry Vaz MD Primary open angle glaucoma (POAG) of left eye, moderate stage (Primary Dx) 11/25/2024 2:00 PM CDT Office Visit [facility] Ophthalmology [address] [place] [phone] Gerry Vaz MD Nuclear sclerotic cataract of both eyes (Primary Dx); Primary open angle glaucoma (POAG) of left eye, moderate stage 11/25/2024 Travel 10/29/2024 10:30 AM CDT Office Visit [facility] Orthopedic Surgery [address] [place] [phone] Ralph Walker MD History of total left knee replacement (Primary Dx) 10/29/2024 9:53 AM CDT - 10/29/2024 11:59 PM CDT Hospital Encounter [facility] Orthopedics [address] [place] [address], [address] [place] [phone] Ralph Walker MD Discharge Disposition: Home or [...] on file Legal Sex Female 6:00 AM FLOWER CHENILLER Gender Identity Not on file Sexual Orientation [...] st Contact Info) Description 01/27/2025 10:30 AM FLOWER CHENILLER Office Visit [facility] Ophthalmology [address] [place] [phone] Aamir Salguero MD [address] [place] [phone] 06/11/2025 11:00 AM CDT Office Visit [facility] [address] [place] [phone] 11/04/2025 10:00 AM CDT Office Visit [facility] - [facility] [place] [phone] Ralph Walker MD [address] [address] Health Maintenance Due Date Last Done Comments [...] CALENDAR YEAR 2024 COVID-19 VACCINE (4 - season) 2024 11/24/2020, 05/23/2020, 04/29/2020 INFLUENZA VACCINE [...] last dose Medical Devices Implanted Type Area Bindery Machine Tender Device Identifier Shelf Expiration Date Model / Serial / Lot Wire K .045in 6in 2 Troc Pnt Smth Ss Fx Implanted:Qty: 1 on 03/10/2019 by Hay Little MD at [facility] Right: Hand [employer] 11/07/2022 [id number] / / [id number] Shannan Swivelock Suture Vancourt With Fork Eyelet Implanted:Qty: 1 on 02/17/2020 at [facility] Right: Hand [employer] 09/11/2024 [id number] / / [id number] Cemented Stem Implanted:Qty: 1 on 03/14/2021 by Ralph Walker MD at [facility] Left: Knee [employer] 10/24/2029 [id number] / / [id number] Ins Tib 3-4 15mm Kn Xlpe Dsh Legion Implanted:Qty: 1 on 03/14/2021 by Ralph Walker MD at [facility] Left: Knee [employer] 01/06/2028 [id number] / / [id number] Cmnt Bone Rally 40gm Hvisc Sprmnt Grn Implanted:Qty: 3 on 03/14/2021 by Ralph Walker MD at [facility] Left: Knee [employer] 08/11/2025 [id number] / / [id number] Total Hip Bone Preparation Kit Implanted:Qty: 1 on 03/14/2021 by Ralph Walker MD at [facility] Left: Knee [employer] 12/24/2030 [id number] / / [id number] Description:Cement Restricto rs Screw Bsplt 20mm 6.5mm Gns2 Kn Tib Por Implanted:Qty: 1 on 03/14/2021 by Ralph Walker MD at [facility] Left: Knee [employer] 10/12/2030 [id number] / / [id number] Revision Tibial Baseplate Implanted:Qty: 1 on 03/14/2021 by Ralph Walker MD at [facility] Left: Knee [employer] 05/30/2030 [id number] / / [id number] Screw On Full Stepped Tibial Wedge Implanted:Qty: 1 on 03/14/2021 by Ralph Walker MD at [facility] Left: Knee [employer] 07/27/2029 [id number] / / [id number] Vancourt Sut Healix Adv 5.5mm Bcmps Slf Implanted:Qty: 1 on 05/11/2022 by Deny Miranda MD at [facility] Left: Shoulder [employer] 10/12/2024 [id number] / / [id number] Vancourt Sut Healix Adv 5.5mm Bcmps Slf - S0 Implanted:Qty: 1 on 05/11/2022 by Deny Miranda MD at [facility] Left: Shoulder [employer] 08/11/2024 [id number] / 0 / [id number] Explanted Type Area Bindery Machine Tender Device Identifier Shelf Expiration Date Model / Serial / Lot Wire K .045in 6in 2 Troc Pnt [facility] Ss Fx Explanted:Qty: 2 on 03/10/2019 by Hay Little MD at [facility] Right: Hand [employer] 11/07/2022 [id number] / / [id number] Stpl Bone 14mmx1.7-1.5mm 4fusion Implanted:Qty: 1 on 03/10/2019 by Hay Little MD at [facility] Explanted:Qty: 1 on 02/17/2020 at [facility] Right: Hand [employer] 12/13/2021 [id number] / / [id number] Procedures Procedure Name Priority Date/Time Associated Diagnosis Comments OPTIC NERVE ANALYSIS OCT Routine 11/25/2024 2:50 PM CDT Primary open angle glaucoma (POAG) of left eye, moderate stage XR KNEE LEFT 4VW OR MORE Routine 10/29/2024 9:58 AM CDT Left knee pain, unspecified chronicity COMPREHENSIVE METABOLIC PANEL Pre-Op 03/03/2021 10:05 AM FLOWER CHENILLER Pre-op testing from Last 3 Months or [...] (ABNORMAL) COMPREHENSIVE METABOLIC PANEL (03/03/2021 10:[address] [facility]) Glucose 94 70 - 105 mg/dL 03/03/2021 10:[address] [facility] Sodium 140 136 - 145 mmol/L 03/03/2021 10:[address] [facility] Potassium 3.9 3.5 - 5.1 mmol/L 03/03/2021 10:[address] [facility] Chloride 106 98 - 107 mmol/L 03/03/2021 10:[address] [facility] CO2 26 23 - 31 mmol/L 03/03/2021 10:[address] [facility] Calcium 9.1 8.4 - 10.4 mg/dL [...] 34 U/L 03/03/2021 10:[address] [facility] Protein Total 7.2 6.4 - 8.3 gm/dL 03/03/2021 10:56 AM FLOWER CHENILLER [facility] Albumin 4.2 3.2 - 4.6 gm/dL 03/03/2021 10:56 AM FLOWER CHENILLER [facility] Bilirubin Total 0.4 0.2 - 1.2 mg/dL 03/03/2021 10:56 AM FLOWER CHENILLER [facility] eGFR by MDRD >60 >60 mL/min/1.7 2 03/03/2021 10:56 AM FLOWER CHENILLER [facility] eGFR by MDRD >60 >60 mL/min/1.7 3m2 03/03/2021 10:56 AM FLOWER CHENILLER [facility] Blood BLOOD SPECIMEN / Unknown Venipuncture / Unknown 03/03/2021 10:05 AM FLOWER CHENILLER 03/03/2021 10:18 AM FLOWER CHENILLER Ralph Walker MD LAB - CHEMISTRY ORDERABLES Final Result Performing Organization Address [facility]/State/[facility] Co de Phone Number [facility] [address] [place] [address] from Last 3 Months or Most Recently Relevant to Health Maintenance Insurance [facility] MANAGED MEDICARE FORMERLY [facility] [place] [address] MEDICAID - [place] Advance Directives * Full Code (Latest Code Status on File) Date Activated Date Inactivated Comments 03/14/2021 12:36 PM 03/18/2021 5:09 PM * Full Code Date Activated Date Inactivated Comments 06/27/2019 4:05 PM 06/30/2019 1:06 PM * Full Code Date Activated Date Inactivated Comments 03/12/2019 4:00 PM 03/14/2019 12:15 PM Care Teams Sales Agent Insurance Relationship Specialty Start Date End Date Marcelino Diaz [address] [place] [phone] PCP - General 03/08/18 Prince Cuellar MD [address] [facility] [address] [place] [address] Physician Endocrinology 07/11/18 Pierce Nelson MD [address] [place] [address] Otolaryngology 07/11/18
--- OUTSIDE RECORDS SUMMARY | 2025-01-26 17:18 | XMS_ITS | Encounter Summary ---
Author Organization [facility] Address [address] [place] [address] Care Team Providers Care Baseball Player Name Role Phone Marcelino Diaz MD Primary Care Provider Encounter Details Date Type Department Care Team (Latest Contact Info) Description 12/18/2017 Abstract [facility] Donovan Wilson MD Social History [...] Description 05/19/2025 10:00 AM CDT Office Visit [facility] Multispecialty Care - [facility] [address] [place] [address] Fili Jarrell DO [address] [facility] [address] [place] [address] documented as of this encounter Visit Diagnoses Not on filedocumented in this encounter Care Teams Baseball Player Relationship Specialty Start Date End Date Marcelino Diaz MD PCP - General 07/13/15 documented as of this encounter
--- OUTSIDE RECORDS SUMMARY | 2025-01-26 17:19 | XMS_ITS | Encounter Summary ---
Author Organization [facility] Address [address] [place] [address] Care Team Providers Care Radiation Therapy Technologist Name Role Phone Marcelino Diaz Primary Care Provider [phone] Prince Cuellar MD Unavailable [phone] Pierce Nelson MD Unavailable [phone] Reason for Visit * Reason Onset Date Comments Nurse Only 12/14/2022 Encounter Details Date Type Department Care Team (Late st Contact Info) Description 12/14/2022 Telephone [facility] - Centralized Scheduling [address] [place] [address] Marco Antonio Diamond MD [address] [place] [address] Nurse Only Social History Tobacco [...] on file Legal Sex Female 6:00 AM CESSPOOL CLEANER Gender Identity Not on file Sexual Orientation [...] st Contact Info) Description 01/27/2025 10:30 AM CESSPOOL CLEANER Office Visit [facility] - Ophthalmology [address] [place] [phone] Aamir Salguero MD [address] [place] [phone] 06/11/2025 11:00 AM CDT Office Visit [facility] [address] [place] [phone] 11/04/2025 10:00 AM CDT Office Visit [facility] - Orthopedic Surgery [address] [place] [address] Ralph Walker MD [address] [facility] [address] [place] [address] documented as of this encounter Goals Goal Patient Goal Type Associated Problems Recent Progress Patient-Stated? Author Mobility General Improving(05/14 11:00 AM CDT) No Ela Smalls, RN Note: Expected end date: 02/12/2020 The goal is to maintain or improve your mobility at the optimum level for you. Interventions: documented as of this encounter Visit Diagnoses Not on filedocumented in this encounter Care Teams Radiation Therapy Technologist Relationship Specialty Start Date End Date Marcelino Diaz [address] [place] [phone] PCP - General 03/08/18 Prince Cuellar MD [facility] [address] [place] [address] Physician Endocrinology 07/11/18 Pierce Nelson MD [address] [facility] [address] [place] [address] Otolaryngology 07/11/18 documented as of this encounter
--- OUTSIDE RECORDS SUMMARY | 2025-01-26 17:19 | XMS_ITS | Clinical Summary ---
Author Organization [facility] Address [address] [place] [address] Care Team Providers Care Curriculum Counselor Name Role Phone Marcelino Diaz MD Primary Care Provider [phone] Allergies Active Allergy Reactions Criticality Noted Date [...] by mouth daily. 2 05/26/19 18 Active [facility] dexlansoprazole () 30 mg capsuleIndications: Research [...] Route Frequency Start Date End Date Status INV-[facility] dexlansoprazole () capsuleIndications:Re search study patient [...] on file Legal Sex Female 2:17 AM SECURITY ROVER Gender Identity Female 12/28/2017 8:57 AM SECURITY ROVER Sexual Orientation Not on file Last Filed Vital Signs Vital Sign Reading Time Taken Comments Blood Pressure 149/92 03/28/2018 11:32 AM SECURITY ROVER Pulse 62 12/28/2017 9:02 AM SECURITY ROVER Temperature 36.6 C (97.8 F) 12/28/2017 9:02 AM SECURITY ROVER Respiratory Rate 20 08/08/2017 4:02 PM CDT Oxygen Saturation 98% 08/08/2017 4:02 PM CDT Inhaled Oxygen Concentration - - Weight 80.3 kg (177 lb) 03/28/2018 11:32 AM SECURITY ROVER Height 157.5 cm (5' 2) 03/28/2018 11:32 AM SECURITY ROVER Body Mass Index 32.37 03/28/2018 11:32 AM SECURITY ROVER Plan of Treatment Health Maintenance Due Date [...] exists Pneumococcal vaccine 65+ Completed 06/06/2022 Insurance [facility] MEDICARE [facility] Address[facility] [address] [place] [address] [facility] MEDICAID [facility] MEDICARE ADVANTAGE [facility] Address: [address] [address] [place] [address] [employer] Advance Directives For more information, please contact: [phone] * Full Code (Latest Code Status on File) Date Activated Date Inactivated Comments 08/08/2017 2:23 PM 08/08/2017 6:30 PM Care Teams Curriculum Counselor Relationship Specialty Start Date End Date Marcelino Diaz MD [address] [place] [address] PCP - General 05/09/16
--- OUTSIDE RECORDS SUMMARY | 2025-01-26 17:19 | XMS_ITS | Encounter Summary ---
Author Organization [facility] Address [facility] [place] [address] Care Team Providers Care Radiology Assistant Name Role Phone Marcelino Diaz Primary Care Provider [phone] Prince Cuellar MD Unavailable [phone] Pierce Nelson MD Unavailable [phone] Reason for Visit * Reason Onset Date Comments MEDICATION REFILL 03/11/2022 Encounter Details Date Type Department Care Team (Late st Contact Info) Description 03/11/2022 Refill [facility] Endocr[facility]ology, Diabetes and Metabolism [address] [place] [address], [facility] [place] [address] Prince Cuellar MD [address] [place] [address] [place] [address] MEDICATION REFILL Social History Tobacco Use Types [...] on file Legal Sex Female 6:00 AM PHONE ENGINEER Gender Identity Not on file Sexual Orientation [...] tablet 4 Sig: May cause drowsiness. 01/17 E ENGINEER documented in this encounter Plan of Treatment Upcoming Encounters Date Type Department Care Team (Late st Contact Info) Description 01/27/2025 10:30 AM PHONE ENGINEER Office Visit [facility] - Ophthalmology [address] [place] [phone] Aamir Salguero MD [address] [place] [address] 06/11/2025 11:00 AM CDT Office Visit [facility] - GI [address] [facility], [place] [address] 11/04/2025 10:00 AM CDT Office Visit [facility] - Orthopedic Surgery [address] [place] [phone] Ralph Walker MD [address] [facility] [address] [place] [address] documented as of this encounter Goals Goal Patient Goal Type Associated Problems Recent Progress Patient-Stated? Author Mobility General Improving(05/14 11:00 AM CDT) No Ela Smalls, RN Note: Expected end date: 02/12/2020 The goal is to maintain or improve your mobility at the optimum level for you. Interventions: documented as of this encounter Visit Diagnoses Not on filedocumented in this encounter Care Teams Radiology Assistant Relationship Specialty Start Date End Date Marcelino Diaz [address] [place] [phone] PCP - General 03/08/18 Prince Cuellar MD [address] [place] [address] Physician Endocrinology 07/11/18 Pierce Nelson MD [address] [place] [address] Otolaryngology 07/11/18 documented as of this encounter
== END 2025-01-26 14:57 | disposition home or self-care (01) ==
LOC: ANHFOHIMG 14:57
PROVIDERS: PCP Family Medicine; Visit Provider Family Medicine
DX: Z12.31 Encounter for screening mammogram for malignant neoplasm of breast (principal)
CPT/HCPCS: 77063; 77067